=== PATIENT | female | born 1955 | race Caucasian/White ===

== ENCOUNTER → 2016-08-31 | Outpatient (CLI) | payer BC | END | disposition home or self-care (01) | LOC: GMAL 14:30 | PROVIDERS: ATTEND Family Medicine | DX: D52.9 Folate deficiency anemia, unspecified (principal); D51.3 Other dietary vitamin B12 deficiency anemia; R53.82 Chronic fatigue, unspecified; E55.9 Vitamin D deficiency, unspecified; D53.9 Nutritional anemia, unspecified ==

== ENCOUNTER → 2016-12-07 | Outpatient (CLI) | payer BC | END | disposition home or self-care (01) | LOC: LAB.O 13:31 | PROVIDERS: ATTEND Family Medicine | DX: K71.6 Toxic liver disease with hepatitis, not elsewhere classified (principal); E83.52 Hypercalcemia | CPT/HCPCS: 36415; 77063; 83970; G0202 ==

== ENCOUNTER → 2017-03-31 | Outpatient (CLI) | payer BC | END | disposition home or self-care (01) | LOC: GMAL 12:53 | PROVIDERS: ATTEND Family Medicine | DX: N30.00 Acute cystitis without hematuria (principal) ==

== ENCOUNTER → 2017-05-11 | Outpatient (CLI) | payer BC | LOC: GMAL 16:53 | PROVIDERS: ATTEND Family Medicine | DX: N30.00 Acute cystitis without hematuria (principal) ==

== ENCOUNTER 2017-09-22 15:20 | Emergency (ER) | payer BC ==
[2017-09-22] MEDS ORDERED: cefTRIAXone SODIUM 1 GM in SODIUM CHL 0.9% 50ML MIN-BAG+ 50 ML IVPB ONE (15:40)
[2017-09-22] MEDS ORDERED: KETOROLAC TROMETHAMINE INJ 30 MG/ML VIAL IV ONE (15:40)
--- NOTE | 2017-09-22 15:44 | ED.PDOC ---
History of Present Illness - General Chief Complaint: Problem Stated Complaint: L flank pain Time Seen by Provider: 09/22/17 15:40 Source: patient Exam Limitations: no limitations - History of Present Illness Initial Comments: patient comes in for suspected kidney infection. Patient states yesterday she started noticing she was having trouble urinating even if she had increased urgency. Patient states she has some dysuria but no hematuria. Today she started having severe pain in her left flank and left lower abdominal area. Patient states it feels like when she has a really bad bladder infection and the last was several months ago. She's had no fever or chills. She has had some nausea but no emesis and she's having normal bowel movements. Patient has never had kidney stones but has dealt with repetitive urinary tract infections since she was a child. Patient has a history of hypertension and cirrhosis of the liver from hepatitis C that has been cured after treatment now. Patient quit smoking in 1995 and does not drink nor does she take illicit drugs. She's had a history of a cholecystectomy, appendectomy, and hysterectomy. Timing/Duration: yesterday Quality: severe, steady, stabbing Onset Location: left flank Radiation: LLQ Activites at Onset: none Prior abdominal problems: none Improving Factors: nothing Worsening Factors: movement Associated Symptoms: nausea/vomiting, urinary frequency Allergies/Adverse Reactions: Allergies NO KNOWN ALLERGY Allergy (Verified 01/12/16 19:17) Home Medications: Ambulatory Orders Aspirin [Aspirin Adult Low Dose] 81 mg PO DAILY 01/13/16 Buspirone HCl 10 mg PO DAILY 01/13/16 Carvedilol 12.5 mg PO BID 01/13/16 Dicyclomine HCl [Bentyl] 10 mg PO TID 01/13/16 Furosemide [Lasix] 40 mg PO DAILY 01/13/16 HYDROcodone 10MG/APAP 325MG [[place] 10/325] 1 tab PO Q4HR PRN 01/13/16 Lactulose (Encephalopathy) [Lactulose] 30 ml PO BID 01/13/16 Nebivolol HCl [Bystolic] 10 mg PO DAILY 01/13/16 Ondansetron HCl [Zofran] 4 mg PO Q4HR PRN 01/13/16 Riboflavin 400 mg PO BEDTIME 01/13/16 Riboflavin 600 mg PO DAILY 01/13/16 Spironolactone 250 mg PO DAILY 01/13/16 Tolterodine Tartrate ER [Detrol LA] 4 mg PO DAILY 01/13/16 HYDROcodone/IBUPROFEN 7.5/200 [Vicoprofen] 1 - 2 ea PO Q4H PRN #30 tab 01/15/16 Promethazine HCl 12.5 mg PO Q4H #20 tab 01/15/16 Sulfa/Trimeth 800/160 (Ds) Tab [Bactrim DS] 1 tablet PO BID 10 Days #20 tab Review of Systems - Review of Systems Constitutional: Denies: chills, diaphoresis, fever EENTM: States: no symptoms reported Respiratory: States: no symptoms reported. Denies: cough, short of breath, wheezing Cardiology: States: no symptoms reported. Denies: chest pain, edema, palpitations Gastrointestinal/Abdominal: States: abdominal pain, nausea. Denies: constipation, diarrhea, vomiting Genitourinary: States: dysuria, frequency, other - hesitancy . Denies: hematuria Musculoskeletal: States: no symptoms reported Skin: States: no symptoms reported Past Medical History (General) - Patient Medical History Hx Seizures: No Hx Stroke: No Hx Asthma: No Hx of COPD: No Hx Cardiac Disorders: Yes Hx Congestive Heart Failure: No Hx Pacemaker: No Hx Hypertension: Yes - Take medication for chronic high BP Hx Diabetes: No Hx Hepatitis C: Yes - finished treatment, endstage cirrhosis declined transplant Hx MRSA: No - Vaccination History Hx Tetanus, Diphtheria Vaccination: No Hx Influenza Vaccination: No Hx Pneumococcal Vaccination: No - Social History Hx Tobacco Use: No Hx Chewing Tobacco Use: No Hx Alcohol Use: No Hx Substance Use: No Hx Substance Use Treatment: No Hx Depression: No Hx Physical Abuse: No Hx Emotional Abuse: No Hx Suspected Abuse: No - Female History Patient : No Family Medical History - Family History Father Family History: Unknown Living Status: Age at (years of age): 83 Cause of : Old age Hx Family Asthma: No Hx Family Congestive Heart Failure: No Hx Family Hypertension: Yes Hx Family Stroke: No Hx Cardiac Disease: No Hx Family Diabetes: No Hx Family Cancer: Yes - breast-mom,sister Mother Family History: Unknown Living Status: Age at (years of age): 62 Cause of : Cancer of Breast. Hx Family Asthma: No Hx Family Congestive Heart Failure: No Hx Family Hypertension: No Hx Family Stroke: No Hx Cardiac Disease: No Hx Family Diabetes: No Hx Family Cancer: Yes Physical Exam - Physical Exam General Appearance: Ill Appearing Eyes, Ears, Nose, Throat Exam: PERRL/EOMI, normal ENT inspection, TMs normal, pharynx normal Neck: non-tender, full range of motion, supple, normal inspection Cardiovascular/Respiratory: regular rate, rhythm, no M/R/G, normal peripheral pulses, no JVD, normal breath sounds, no respiratory distress, JVD Gastrointestinal/Abdominal: soft - TTP LLQ with no rebound or guarding, L CVA tenderness, no bruising no deformity Extremity: normal range of motion Neurologic: alert, oriented x 3 Progress - Progress Progress: 09/22/17 16:59 09/22/17 16:57 Abdoment/Pelvis w/o Contrast [CT] Stat Laboratory Results WBC 4.7 K/mm3 (4.8-10.8) L 09/22/17 15:50 RBC 4.20 M/mm3 (4.20-5.40) 09/22/17 15:50 Hgb 12.9 gm/dL (12.0-16.0) 09/22/17 15:50 Hct 37.7 % (36.0-47.0) 09/22/17 15:50 MCV 89.6 fl (81.0-99.0) 09/22/17 15:50 MCH 30.7 pg (27.0-31.0) 09/22/17 15:50 MCHC 34.2 g/dL (33.0-37.0) 09/22/17 15:50 RDW 13.7 % (11.5-14.5) 09/22/17 15:50 Plt Count 111 K/mm3 (130-400) L 09/22/17 15:50 MPV 7.5 fl (7.40-10.4) 09/22/17 15:50 Absolute Neuts (auto) 3.30 K/uL (1.8-6.8) 09/22/17 15:50 Absolute Lymphs (auto) 0.80 K/uL (1.0-3.4) L 09/22/17 15:50 Absolute Monos (auto) 0.40 K/uL (0.2-0.8) 09/22/17 15:50 Absolute Eos (auto) 0.10 K/uL (0.0-0.4) 09/22/17 15:50 Absolute Basos (auto) 0.00 K/uL (0.0-0.1) 09/22/17 15:50 Neutrophils % 70.6 % (42.0-78.0) 09/22/17 15:50 Lymphocytes % 18.0 % (20.0-50.0) L 09/22/17 15:50 Monocytes % 9.1 % (2.0-9.0) H 09/22/17 15:50 Eosinophils % 1.6 % (1.0-5.0) 09/22/17 15:50 Basophils % 0.7 % (0.0-2.0) 09/22/17 15:50 Sodium 135 mmol/L (135-145) 09/22/17 15:50 Potassium 4.6 mmol/L (3.6-5.0) 09/22/17 15:50 Chloride 105 mmol/L (101-111) 09/22/17 15:50 Carbon Dioxide 24 mmol/L (21-31) 09/22/17 15:50 Anion Gap 10.6 (12-18) L 09/22/17 15:50 BUN 14 mg/dL (7-18) 09/22/17 15:50 Creatinine 0.84 mg/dL (0.6-1.3) 09/22/17 15:50 BUN/Creatinine Ratio 16.7 (10-20) 09/22/17 15:50 Random Glucose 80 mg/dL (70-105) 09/22/17 15:50 Serum Osmolality 269.5 mOsm/L (275-295) L 09/22/17 15:50 Lactic Acid 0.8 mmol/L (0.5-2.2) 09/22/17 15:50 Calcium 10.2 mg/dL (8.4-10.2) 09/22/17 15:50 Total Bilirubin 1.6 mg/dL (0.2-1.0) H 09/22/17 15:50 AST 29 IU/L (10-42) 09/22/17 15:50 ALT 17 IU/L (10-60) 09/22/17 15:50 Alkaline Phosphatase 72 IU/L (42-121) 09/22/17 15:50 Serum Total Protein 6.9 gm/dL (6.4-8.2) 09/22/17 15:50 Albumin 3.7 g/dl (3.2-5.5) 09/22/17 15:50 Globulin 3.2 gm/dL (2.3-3.5) 09/22/17 15:50 Albumin/Globulin Ratio 1.2 (1.1-1.9) 09/22/17 15:50 Urine Color Yellow (Yellow) 09/22/17 16:30 Urine Appearance Clear (Clear) 09/22/17 16:30 Urine pH 6.5 (4.5-7.8) 09/22/17 16:30 Ur Specific [place] >= 1.030 (1.005-1.030) 09/22/17 16:30 Urine Protein Negative mg/dL 09/22/17 16:30 Urine Glucose (UA) Negative mg/dL (Negative) 09/22/17 16:30 Urine Ketones Negative mg/dL (NEGATIVE) 09/22/17 16:30 Urine Blood Negative (Negative) 09/22/17 16:30 Urine Nitrite Negative 09/22/17 16:30 Urine Bilirubin Negative (NEGATIVE) 09/22/17 16:30 Urine Urobilinogen 0.2 mg/dL (0.2-1.0) 09/22/17 16:30 Ur Leukocyte Esterase Negative (Negative) 09/22/17 16:30 Urine RBC 0 /hpf 09/22/17 16:30 Urine WBC 0-1 /hpf 09/22/17 16:30 Ur Epithelial Cells 0 /hpf 09/22/17 16:30 Urine Bacteria Rare 09/22/17 16:30 Patient continues to hurt on the L flank and LLQ despite Toradol and Demerol. CT of abdomen and pelvis ordered. UA and labs are normal 09/22/17 17:54 Patient Name: ELIO ANNE Gender: Female Date of : 1955 Referring Physician: THU ELLIS Organization: [facility] Accession Number: [id number] Requested Date: September 22, 2017 16:57 Report Status: Final Requested Procedure: 1 Procedure Description: Abdoment/Pelvis w/o Contrast Modality: CT Findings Reporting MD: Miguelito Sherman Fellow MD: Not available Dictation Time: Entrepreneurship Program Director: Not available Social Worker [facility] Date: EXAM DESCRIPTION: Abdoment/Pelvis w/o Contrast CLINICAL HISTORY:61 years Female, L flank pain and LLQ pain -UA Comparison: October 30, 2013 TECHNIQUE: Contiguous axial images of the abdomen and pelvis were obtained followed by reconstruction images. This exam was performed according to our departmental dose-optimization program, which includes automated exposure control, adjustment of the mA and/or kV according to patient size and/or use of iterative reconstruction technique. FINDINGS: Lung bases: Lung bases are clear. Heart: Visualized heart is within normal limits in size. Liver:Nodular contour throughout the liver consistent with cirrhosis. Heterogeneous liver appearance, Focal lesion not excluded. Gallbladder:Cholecystectomy clips in the gallbladder fossa. Spleen:Mild splenomegaly. Nonspecific calcifications throughout the spleen suggestive of prior granulomatous exposure. Pancreas: Pancreas is unremarkable. Adrenal glands:Left adrenal 1.2 cm nodule with attenuation of -15 consistent with adrenal adenoma. Kidneys/ureters:Within normal limits Bladder:Mildly thickened bladder wall. Pelvic organs: No acute abnormality Vascular structures: Diffuse atherosclerotic vascular calcifications. Peritoneum: No free fluid. Lymph nodes: No abnormal lymph nodes. Stomach/small bowel/colon: Stomach is unremarkable. Small bowel is unremarkable. Colon is unremarkable. Appendix: No evidence of appendicitis. Bones: Moderate spine degenerative changes. Soft tissues: Unremarkable. IMPRESSION: * Mildly thickened bladder wall which may be due to [facility] [employer]. [address] [place] [address], [address] [place] [address] T [phone] F [phone] [email or web address] - Report exported on Sep 22, 2017 17:53:[id number] -[id number] - Page 2 of 2 underdistention or infectious cystitis. Otherwise no acute intra-abdominal abnormality. * No bowel inflammatory changes. No evidence of obstruction. * Cirrhotic liver morphology with heterogeneous appearance. Underlying lesion not excluded these examination. Further evaluation with CT or MR liver protocol recommended. * Mild splenomegaly. * Left adrenal adenoma. Discussed with patient results. she is aware of cirrhosis and sees GI (see HPI) . Patient continues to hurt and is adamant that this is like her other UTIs. Patient has will have trial of Bactrim DS 1 po BID x 10 days and follow up with PCP on Monday. Departure - Departure Clinical Impression: Cystitis Disposition: Discharge to Home or Self Care Condition: Fair Departure Forms: ED Discharge - Pt. Copy, Patient Portal Self Enrollment Instructions: DI for Urinary Tract Infection (UTI) Diet: regular diet Activity: increase activity as tolerated Referrals: Francis Alatorre III, MD [Primary Care Provider] - 1-2 Weeks Home Medications: Ambulatory Orders Aspirin [Aspirin Adult Low Dose] 81 mg PO DAILY 01/13/16 Buspirone HCl 10 mg PO DAILY 01/13/16 Carvedilol 12.5 mg PO BID 01/13/16 Dicyclomine HCl [Bentyl] 10 mg PO TID 01/13/16 Furosemide [Lasix] 40 mg PO DAILY 01/13/16 HYDROcodone 10MG/APAP 325MG [[place] ] 1 tab PO Q4HR PRN 01/13/16 Lactulose (Encephalopathy) [Lactulose] 30 ml PO BID 01/13/16 Nebivolol HCl [Bystolic] 10 mg PO DAILY 01/13/16 Ondansetron HCl [Zofran] 4 mg PO Q4HR PRN 01/13/16 Riboflavin 400 mg PO BEDTIME 01/13/16 Riboflavin 600 mg PO DAILY 01/13/16 Spironolactone 250 mg PO DAILY 01/13/16 Tolterodine Tartrate ER [Detrol LA] 4 mg PO DAILY 01/13/16 HYDROcodone/IBUPROFEN 7.5/200 [Vicoprofen] 1 - 2 ea PO Q4H PRN #30 tab 01/15/16 Promethazine HCl 12.5 mg PO Q4H #20 tab 01/15/16 Sulfa/Trimeth 800/160 (Ds) Tab [Bactrim DS] 1 tablet PO BID 10 Days #20 tab Additional Instructions: Follow with PCP on Monday. Start Bactrim tomorrow at 1 twice a day for 10 days. Return to emergency room for increasing pain, temperature greater than or equal to 100.5, intractable nausea and vomiting.
[2017-09-22] MEDS ORDERED: cefTRIAXone SODIUM 1 GM VIAL ONE (15:50)
[2017-09-22] MEDS ORDERED: SODIUM CHL 0.9% 50ML MIN-BAG+ 50 ML IVPB ONE (15:50)
[2017-09-22] MEDS ORDERED: MEPERIDINE HCL 50 MG/ML VIAL IV ONE (16:17)
[2017-09-22] MEDS ORDERED: MEPERIDINE HCL 50 MG/ML VIAL ONE (16:18)
[2017-09-22 16:35] VITALS: TEMP 98.8
--- NOTE | 2017-09-22 17:33 | CT ---
EXAM DESCRIPTION: Abdoment/Pelvis w/o Contrast CLINICAL HISTORY:61 years Female, L flank pain and LLQ pain -UA Comparison: October 30, 2013 TECHNIQUE: Contiguous axial images of the abdomen and pelvis were obtained followed by reconstruction images. This exam was performed according to our departmental dose-optimization program, which includes automated exposure control, adjustment of the mA and/or kV according to patient size and/or use of iterative reconstruction technique. FINDINGS: Lung bases: Lung bases are clear. Heart: Visualized heart is within normal limits in size. Liver:Nodular contour throughout the liver consistent with cirrhosis. Heterogeneous liver appearance, Focal lesion not excluded. Gallbladder:Cholecystectomy clips in the gallbladder fossa. Spleen:Mild splenomegaly. Nonspecific calcifications throughout the spleen suggestive of prior granulomatous exposure. Pancreas: Pancreas is unremarkable. Adrenal glands:Left adrenal 1.2 cm nodule with attenuation of -15 consistent with adrenal adenoma. Kidneys/ureters:Within normal limits Bladder:Mildly thickened bladder wall. Pelvic organs: No acute abnormality Vascular structures: Diffuse atherosclerotic vascular calcifications. Peritoneum: No free fluid. Lymph nodes: No abnormal lymph nodes. Stomach/small bowel/colon: Stomach is unremarkable. Small bowel is unremarkable. Colon is unremarkable. Appendix: No evidence of appendicitis. Bones: Moderate spine degenerative changes. Soft tissues: Unremarkable. IMPRESSION: * Mildly thickened bladder wall which may be due to underdistention or infectious cystitis. Otherwise no acute intra-abdominal abnormality. * No bowel inflammatory changes. No evidence of obstruction. * Cirrhotic liver morphology with heterogeneous appearance. Underlying lesion not excluded these examination. Further evaluation with CT or MR liver protocol recommended. * Mild splenomegaly. * Left adrenal adenoma. Electronically signed by: Miguelito Sherman MD 09/22/2017 5:31 PM CDT
[2017-09-22 17:52] VITALS: O2SAT 99
[2017-09-22] MEDS ORDERED: MORPHINE SULFATE INJ 10 MG/ML VIAL IV ONE (17:55)
[2017-09-22 18:16] VITALS: BP 126/80
[2017-09-22] MEDS ORDERED: ACETAMINOPHEN W/COD #3 TAB (ER Disp) ONE (18:47)
[2017-09-22] MEDS ORDERED: ACETAMINOPHEN W/COD #3 TAB (ER Disp) PO ONE (18:49)
== END 2017-09-22 18:18 | disposition home or self-care (01) ==
LOC: ER 15:20
DX: N30.00 Acute cystitis without hematuria (principal); I10 Essential (primary) hypertension; B19.20 Unspecified viral hepatitis C without hepatic coma; R11.2 Nausea with vomiting, unspecified; Z98.2 Presence of cerebrospinal fluid drainage device; Z79.899 Other long term (current) drug therapy; Z87.891 Personal history of nicotine dependence
CPT/HCPCS: 36415; 74176; 80053; 81001; 83605; 85025; J0696; J1885; J2175; J2270; J7050

== ENCOUNTER → 2017-10-04 | Outpatient (CLI) | payer BC | LOC: GMAL 14:36 | PROVIDERS: ATTEND Family Medicine | DX: N30.00 Acute cystitis without hematuria (principal) ==

== ENCOUNTER 2018-03-26 19:10 | Emergency (ER) | payer SELFPAY ==
[2018-03-26] MEDS ORDERED: SODIUM CHLORIDE 0.9% 1000ML 1,000 ML IVS ONE ×2 (19:40→22:29)
[2018-03-26] MEDS ORDERED: ONDANSETRON INJ 4 MG/2 ML VIAL ONE (20:54)
[2018-03-26] MEDS ORDERED: ONDANSETRON INJ 4 MG/2 ML VIAL IV ONE (21:02)
--- NOTE | 2018-03-26 21:23 | ED.PDOC ---
History of Present Illness - General Chief Complaint: General Stated Complaint: dizziness Time Seen by Provider: 03/26/18 19:38 Source: patient Exam Limitations: no limitations - History of Present Illness Initial Comments: Patient presents with dizziness for two days. She has hepatic cirrhosis and takes a "water pill" for that. She developed dizziness and stopped taking it be cause she said she could not make it to the restroom quick enough because of the dizziness. She does not believe that she was urinating more or less than normal. No other complaints. Timing/Duration: other - two days Severity: moderate Improving Factors: nothing Worsening Factors: nothing Associated Symptoms: denies symptoms Allergies/Adverse Reactions: Allergies NO KNOWN ALLERGY Allergy (Verified 01/12/16 19:17) Home Medications: Ambulatory Orders Aspirin [Aspirin Adult Low Dose] 81 mg PO DAILY 01/13/16 Buspirone HCl 10 mg PO DAILY 01/13/16 Carvedilol 12.5 mg PO BID 01/13/16 Dicyclomine HCl [Bentyl] 10 mg PO TID 01/13/16 Furosemide [Lasix] 40 mg PO DAILY 01/13/16 HYDROcodone 10MG/APAP 325MG [[place] 10/325] 1 tab PO Q4HR PRN 01/13/16 Lactulose (Encephalopathy) [Lactulose] 30 ml PO BID 01/13/16 Nebivolol HCl [Bystolic] 10 mg PO DAILY 01/13/16 Ondansetron HCl [Zofran] 4 mg PO Q4HR PRN 01/13/16 Riboflavin 400 mg PO BEDTIME 01/13/16 Riboflavin 600 mg PO DAILY 01/13/16 Spironolactone 250 mg PO DAILY 01/13/16 Tolterodine Tartrate ER [Detrol LA] 4 mg PO DAILY 01/13/16 Review of Systems - Review of Systems Constitutional: States: no symptoms reported EENTM: States: no symptoms reported Respiratory: States: no symptoms reported Cardiology: States: no symptoms reported Gastrointestinal/Abdominal: States: no symptoms reported Genitourinary: States: no symptoms reported Musculoskeletal: States: no symptoms reported Skin: States: no symptoms reported Neurological: States: see HPI Endocrine: States: no symptoms reported Hematologic/Lymphatic: States: no symptoms reported Past Medical History (General) - Patient Medical History Hx Seizures: No Hx Stroke: No Hx Dementia: No Hx Asthma: No Hx of COPD: No Hx Cardiac Disorders: No Hx Congestive Heart Failure: No Hx Pacemaker: No Hx Hypertension: Yes Hx Thyroid Disease: No Hx Diabetes: No Hx Gastroesophageal Reflux: Yes Hx Renal Disease: No Hx Cancer: No Hx of HIV: No Hx Hepatitis C: Yes - finished treatment, endstage cirrhosis declined transplant Hx MRSA: No Surgical History: angioplasty, cholecystectomy - Vaccination History Hx Tetanus, Diphtheria Vaccination: No Hx Influenza Vaccination: No Hx Pneumococcal Vaccination: No Immunizations Up to Date: No - Social History Hx Tobacco Use: Yes - Quit 1985 Hx Chewing Tobacco Use: No Hx Alcohol Use: No Hx Substance Use: No Hx Substance Use Treatment: No Hx Depression: No Feels Threatened In Home Enviroment: No Feels Threatened In a Relationship: No Hx Physical Abuse: No Hx Emotional Abuse: No Hx Suspected Abuse: No - Female History Patient is a Female of Child Bearing Age (10 -59 yrs old): No Patient : No Family Medical History - Family History Father Family History: Unknown Living Status: Age at (years of age): 83 Cause of : Old age Hx Family Asthma: No Hx Family Congestive Heart Failure: No Hx Family Hypertension: Yes Hx Family Stroke: No Hx Cardiac Disease: No Hx Family Diabetes: No Hx Family Cancer: Yes - breast-mom,sister Mother Family History: Unknown Living Status: Age at (years of age): 62 Cause of : Cancer of Breast. Hx Family Asthma: No Hx Family Congestive Heart Failure: No Hx Family Hypertension: No Hx Family Stroke: No Hx Cardiac Disease: No Hx Family Diabetes: No Hx Family Cancer: Yes Physical Exam - Physical Exam General Appearance: Alert Eye Exam: bilateral normal Ears, Nose, Throat: hearing grossly normal, normal ENT inspection Neck: non-tender, full range of motion, supple Respiratory: lungs clear, normal breath sounds Cardiovascular/Chest: regular rate, rhythm, other - faint pulses Gastrointestinal/Abdominal: normal bowel sounds, non tender, soft Back Exam: normal inspection, no CVA tenderness Extremity: normal range of motion, non-tender, normal inspection, no pedal edema 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 This is likely a primary acute renal failure and not simple dehydration. Patient was transferred to [facility]. Laboratory Tests 03/26/18 03/26/18 03/26/18 20:12 20:12 23:19 WBC 14.7 H RBC 3.63 L Hgb 10.9 L Hct 32.6 L MCV 89.9 MCH 30.0 MCHC 33.5 RDW 14.9 H Plt Count 173 MPV 8.6 Absolute Neuts (auto) 10.50 H Absolute Lymphs (auto) 3.00 Absolute Monos (auto) 0.90 H Absolute Eos (auto) 0.00 Absolute Basos (auto) 0.20 H Neutrophils % 71.5 Lymphocytes % 20.7 Monocytes % 5.9 Eosinophils % 0.3 L Basophils % 1.6 Sodium 137 136 Potassium 4.4 3.9 Chloride 109 111 Carbon Dioxide 18 L 17 L Anion Gap 14.4 11.9 L BUN 108 H* 106 H* Creatinine 1.75 H 1.67 H BUN/Creatinine Ratio 61.7 H 63.5 H Random Glucose 100 85 Serum Osmolality Not Reportable 304.2 H Calcium 10.3 H 9.0 Total Bilirubin 1.9 H AST 38 ALT 30 Alkaline Phosphatase 56 B-Natriuretic Peptide 19.9 Serum Total Protein 7.1 Albumin 4.0 Globulin 3.1 Albumin/Globulin Ratio 1.3 Urine Color Urine Appearance Urine pH Ur Specific [place] Urine Protein Urine Glucose (UA) Urine Ketones Urine Blood Urine Nitrite Urine Bilirubin Urine Urobilinogen Ur Leukocyte Esterase Urine RBC Urine WBC Ur Epithelial Cells Urine Bacteria 03/27/18 01:50 WBC RBC Hgb Hct MCV MCH MCHC RDW Plt Count MPV Absolute Neuts (auto) Absolute Lymphs (auto) Absolute Monos (auto) Absolute Eos (auto) Absolute Basos (auto) Neutrophils % Lymphocytes % Monocytes % Eosinophils % Basophils % Sodium Potassium Chloride Carbon Dioxide Anion Gap BUN Creatinine BUN/Creatinine Ratio Random Glucose Serum Osmolality Calcium Total Bilirubin AST ALT Alkaline Phosphatase B-Natriuretic Peptide Serum Total Protein Albumin Globulin Albumin/Globulin Ratio Urine Color Yellow Urine Appearance Clear Urine pH 6.0 Ur Specific [place] 1.010 Urine Protein Negative Urine Glucose (UA) Negative Urine Ketones Negative Urine Blood Negative Urine Nitrite Negative Urine Bilirubin Negative Urine Urobilinogen 0.2 Ur Leukocyte Esterase Negative Urine RBC 0 Urine WBC 0 Ur Epithelial Cells 0 Urine Bacteria 0 Departure - Departure Clinical Impression: ARF (acute renal failure), Dizziness Disposition: Transfer to Hospital Condition: Fair Departure Forms: ED Discharge - Pt. Copy, Patient Portal Self Enrollment Diet: other - NPO except water and ice Activity: as per physical therapy Referrals: Francis Alatorre III, MD [Primary Care Provider] - 1-2 Weeks Home Medications: Ambulatory Orders Aspirin [Aspirin Adult Low Dose] 81 mg PO DAILY 01/13/16 Buspirone HCl 10 mg PO DAILY 01/13/16 Carvedilol 12.5 mg PO BID 01/13/16 Dicyclomine HCl [Bentyl] 10 mg PO TID 01/13/16 Furosemide [Lasix] 40 mg PO DAILY 01/13/16 HYDROcodone 10MG/APAP 325MG [[place] ] 1 tab PO Q4HR PRN 01/13/16 Lactulose (Encephalopathy) [Lactulose] 30 ml PO BID 01/13/16 Nebivolol HCl [Bystolic] 10 mg PO DAILY 01/13/16 Ondansetron HCl [Zofran] 4 mg PO Q4HR PRN 01/13/16 Riboflavin 400 mg PO BEDTIME 01/13/16 Riboflavin 600 mg PO DAILY 01/13/16 Spironolactone 250 mg PO DAILY 01/13/16 Tolterodine Tartrate ER [Detrol LA] 4 mg PO DAILY 01/13/16
--- NOTE | 2018-03-26 21:42 | RAD ---
EXAM DESCRIPTION: AP view of the chest CLINICAL HISTORY:62 years Female, hypotension Comparison: None FINDINGS: No focal lung consolidation. No pleural effusion. No pneumothorax. Cardiac and mediastinal silhouette is unremarkable. No acute osseous abnormality. Soft tissues are unremarkable. IMPRESSION: No acute findings. No focal lung consolidation. Electronically signed by: Nam Epps DO 03/26/2018 9:41 PM ADMINISTRATIVE JUDGE
[2018-03-27] MEDS ORDERED: ONDANSETRON INJ 4 MG/2 ML VIAL IV ONE ×2 (00:08→07:39)
[2018-03-27] MEDS ORDERED: SODIUM CHLORIDE 0.9% 1000ML 1,000 ML IVS ONE (00:10)
[2018-03-27] MEDS ORDERED: SODIUM CHLORIDE 0.9% 1000ML 1,000 ML IVS PRN (03:38)
[2018-03-27 07:56] VITALS: O2SAT 98
[2018-03-27 08:28] VITALS: BP 102/55; TEMP 97.4
== END 2018-03-27 08:28 | disposition short-term general hospital (02) ==
LOC: ER 19:10
DX: N17.9 Acute kidney failure, unspecified (principal); R42 Dizziness and giddiness; K74.60 Unspecified cirrhosis of liver; I10 Essential (primary) hypertension; K21.9 Gastro-esophageal reflux disease without esophagitis; Z87.891 Personal history of nicotine dependence; Z86.19 Personal history of other infectious and parasitic diseases; Z79.899 Other long term (current) drug therapy; Z79.82 Long term (current) use of aspirin
CPT/HCPCS: 71045; 80048; 80053; 81001; 83880; 85025; J2405; J7030

== ENCOUNTER 2018-09-27 18:58 | Emergency (ER) | payer SELFPAY ==
--- NOTE | 2018-09-27 19:40 | ED.PDOC ---
History of Present Illness - General Chief Complaint: Lower Extremity Injury Stated Complaint: L hip discomfort after a fall Time Seen by Provider: 09/27/18 19:38 Source: patient Exam Limitations: no limitations - History of Present Illness Initial Comments: Lakhwinder Slater 62 y/o female stated that she fell on her left side after tripping on a rug at home then with pain on left hip after wards.Called up EMS since unable to get up.Denies neck pains,headache ,dizziness,or LOC. Occurred: just prior to arrival Pain - Lower Extremity: severe: Left Thigh/Hip Method of Injury: fell Improving Factors: rest Worsening Factors: movement Associated Symptoms: pain Allergies/Adverse Reactions: Allergies NO KNOWN ALLERGY Allergy (Verified 01/12/16 19:17) Home Medications: Ambulatory Orders Carvedilol 6.25 mg PO BID 01/13/16 Furosemide [Lasix] 40 mg PO DAILY 01/13/16 Spironolactone 250 mg PO DAILY 01/13/16 Citalopram Hydrobromide [Citalopram] 40 mg PO DAILY 03/27/18 Lisinopril 10 mg PO BID 03/27/18 Oxycodone W/ Acetaminophen [Oxycodone/Acetaminophen] 1 tab PO TID 03/27/18 Review of Systems - Review of Systems Musculoskeletal: States: joint pain - left hip Past Medical History (General) - Patient Medical History Hx Seizures: No Hx Stroke: No Hx Dementia: No Hx Asthma: No Hx of COPD: No Hx Cardiac Disorders: No Hx Congestive Heart Failure: No Hx Pacemaker: No Hx Hypertension: Yes Hx Thyroid Disease: No Hx Diabetes: No Hx Gastroesophageal Reflux: Yes Hx Renal Disease: No Hx Cancer: No Hx of HIV: No Hx Hepatitis C: Yes - finished treatment, endstage cirrhosis declined transplant Hx MRSA: No Surgical History: cholecystectomy, other - angioplasty - Vaccination History Hx Tetanus, Diphtheria Vaccination: No Hx Influenza Vaccination: No Hx Pneumococcal Vaccination: No - Social History Hx Tobacco Use: Yes - Quit 1985 Hx Chewing Tobacco Use: No Hx Alcohol Use: No Hx Substance Use: No Hx Substance Use Treatment: No Hx Depression: No Hx Physical Abuse: No Hx Emotional Abuse: No Hx Suspected Abuse: No - Female History Patient : No Family Medical History - Family History Father Family History: Unknown Living Status: Age at (years of age): 83 Cause of : Old age Hx Family Asthma: No Hx Family Congestive Heart Failure: No Hx Family Hypertension: Yes Hx Family Stroke: No Hx Cardiac Disease: No Hx Family Diabetes: No Hx Family Cancer: Yes - breast-mom,sister Mother Family History: Unknown Living Status: Age at (years of age): 62 Cause of : Cancer of Breast. Hx Family Asthma: No Hx Family Congestive Heart Failure: No Hx Family Hypertension: No Hx Family Stroke: No Hx Cardiac Disease: No Hx Family Diabetes: No Hx Family Cancer: Yes Physical Exam - Physical Exam General Appearance: Alert, Comfortable, No apparent distress Eyes, Ears, Nose, Throat: normal ENT inspection Neck: non-tender, full range of motion, supple, normal inspection Cardiovascular/Respiratory: regular rate, rhythm, no M/R/G, normal peripheral pulses, normal breath sounds Gastrointestinal/Abdominal: non-tender Back: normal inspection, no CVA tenderness, no vertebral tenderness Thigh/Hip: bone tenderness - left hip, pain - movement Leg: normal inspection, non-tender, no evidence of injury, normal ROM Knee: normal inspection, non-tender, no evidence of injury Ankle: non-tender, no evidence of injury, normal ROM Foot: normal inspection, non-tender, normal ROM Progress - Progress Progress: 09/27/18 20:29 Vital Signs - 8 hr 09/27/18 09/27/18 18:58 20:00 Temperature 98.5 F 98.7 F Pulse Rate [ 70 64 Left Radial] Respiratory 20 18 Rate Blood Pressure 191/109 183/96 [Left Arm] O2 Sat by Pulse 99 96 Oximetry 09/27/18 20:32 Discuss result of hip x ray with patient and need to be transferred to [facility] since OR closed till Monday-explained to patient - EKG/XRAY/CT XRAY: hip - left femoral neck fracture Departure - Departure Clinical Impression: Fracture due to fall Fracture of base of femoral neck Qualifiers: Encounter type: initial encounter Fracture type: closed Fracture alignment: displaced Laterality: left Qualified Code(s): S72.042A - Displaced fracture of base of neck of left femur, initial encounter for closed fracture Time of Disposition: 20:33 Disposition: Transfer to Hospital Condition: Fair Departure Forms: Patient Portal Self Enrollment Referrals: Francis Alatorre III, MD [Primary Care Provider] - 1-2 Weeks Home Medications: Ambulatory Orders Carvedilol 6.25 mg PO BID 01/13/16 Furosemide [Lasix] 40 mg PO DAILY 01/13/16 Spironolactone 250 mg PO DAILY 01/13/16 Citalopram Hydrobromide [Citalopram] 40 mg PO DAILY 03/27/18 Lisinopril 10 mg PO BID 03/27/18 Oxycodone W/ Acetaminophen [Oxycodone/Acetaminophen] 1 tab PO TID 03/27/18 Transfer to Outside Facility - Transfer Information Accepting Provider:: Dr. Abbi Serna Accepting Facility: [facility] till 01 October 2018
[2018-09-27] MEDS ORDERED: HYDROmorphone HCL INJ 2 MG/ML VIAL IV ONE ×2 (20:11→21:12)
--- NOTE | 2018-09-27 20:15 | RAD ---
EXAM DESCRIPTION: Hip,Left 2 Views CLINICAL HISTORY: 62 years Female fall with left hip pain COMPARISON: None TECHNIQUE: Two images of the left hip were obtained. FINDINGS: Fracture left femoral neck. Superior displacement trochanteric fracture fragment. Satisfactory articulation left femoral head with acetabular region. Joint space narrowing noted. Normal bony mineralization. No erosive or lytic lesions. IMPRESSION: Fracture left femoral neck. Superimposed degenerative changes. Electronically signed by: Elvira Sorto MD 09/27/2018 8:13 PM CDT
--- NOTE | 2018-09-27 20:16 | RAD ---
EXAM DESCRIPTION: Pelvis CLINICAL HISTORY: 62 years Female fall with left hip pain COMPARISON: Images of the left hip performed on the same day. TECHNIQUE: AP view of the pelvis was obtained. FINDINGS: Fracture left femoral neck. Superior displacement trochanteric fracture fragment. No additional fracture seen. Moderate bony demineralization. Marked degenerative change lower lumbar spine. IMPRESSION: Fracture left femoral neck. Superior displacement trochanteric fracture fragment. No additional fracture seen. Marked degenerative change lower lumbar spine. Electronically signed by: Elvira Sorto MD 09/27/2018 8:14 PM CDT
[2018-09-27 20:44] VITALS: TEMP 97.5; O2SAT 98
[2018-09-27] MEDS ORDERED: ONDANSETRON INJ 4 MG/2 ML VIAL IV ONE (21:13)
[2018-09-27 21:16] VITALS: BP 189/105
== END 2018-09-27 21:25 | disposition short-term general hospital (02) ==
LOC: ER 18:58
DX: S72.042A Displaced fracture of base of neck of left femur, initial encounter for closed fracture (principal); I10 Essential (primary) hypertension; K21.9 Gastro-esophageal reflux disease without esophagitis; Z86.19 Personal history of other infectious and parasitic diseases; K74.60 Unspecified cirrhosis of liver; Z87.891 Personal history of nicotine dependence; Z79.899 Other long term (current) drug therapy; W01.0XXA Fall on same level from slipping, tripping and stumbling without subsequent striking against object, initial encounter; Y92.009 Unspecified place in unspecified non-institutional (private) residence as the place of occurrence of the external cause
CPT/HCPCS: 72170; 73502; J1170; J2405

== ENCOUNTER 2018-10-24 14:39 | Emergency (ER) | payer SELFPAY ==
[2018-10-24] MEDS ORDERED: SODIUM CHLORIDE 0.9% 1000ML 1,000 ML IVS ONE (14:49)
[2018-10-24] MEDS ORDERED: PROCHLORPERAZINE INJ 10 MG/2 ML VIAL IV ONE (14:49)
[2018-10-24] MEDS ORDERED: MORPHINE SULFATE INJ 10 MG/ML VIAL IV ONE (14:49)
--- NOTE | 2018-10-24 14:49 | ED.PDOC ---
History of Present Illness - General Chief Complaint: Abdominal Pain Stated Complaint: abdominal pain Time Seen by Provider: 10/24/18 14:48 Information Source: patient Exam Limitations: no limitations - History of Present Illness Initial Comments: Lakhwinder Slater 62 y/o female came to ER with sudden onset of intermittent non radiating sharp right sided abdominal pain about 2 hours ago.[place] nauseated stated ate light meals today.Denie dysuria,hematuria,hematemesis,diarrhea.Had recent left hip surgery in [facility]. Abdominal Pain Onset Location: RLQ Pain Radiation: no radiation Quality: intermittent, sharpness Timing/Duration: 1-3 hours Improving Factors: nothing Worsening Factors: nothing Associated Symptoms: other - see hpi Review of Systems - Review of Systems Gastrointestinal/Abdominal: States: see HPI, abdominal pain All other Systems: Reviewed and Negative, No Change from Baseline Past Medical History (General) - Patient Medical History Hx Seizures: No Hx Stroke: No Hx Dementia: No Hx Asthma: No Hx of COPD: No Hx Cardiac Disorders: No Hx Congestive Heart Failure: No Hx Pacemaker: No Hx Hypertension: Yes Hx Thyroid Disease: No Hx Diabetes: No Hx Gastroesophageal Reflux: Yes - history of variceal bleeding Hx Renal Disease: No Hx Cancer: No Hx of HIV: No Hx Hepatitis C: Yes - finished treatment, endstage cirrhosis declined transplant Hx MRSA: No Surgical History: appendectomy, cholecystectomy, other - hip - Vaccination History Hx Tetanus, Diphtheria Vaccination: No Hx Influenza Vaccination: No Hx Pneumococcal Vaccination: No - Social History Hx Tobacco Use: Yes - Quit 1985 Hx Chewing Tobacco Use: No Hx Alcohol Use: No Hx Substance Use: No Hx Substance Use Treatment: No Hx Depression: No Hx Physical Abuse: No Hx Emotional Abuse: No Hx Suspected Abuse: No - Female History Patient : No Family Medical History - Family History Father Family History: Unknown Living Status: Age at (years of age): 83 Cause of : Old age Hx Family Asthma: No Hx Family Congestive Heart Failure: No Hx Family Hypertension: Yes Hx Family Stroke: No Hx Cardiac Disease: No Hx Family Diabetes: No Hx Family Cancer: Yes - breast-mom,sister Mother Family History: Unknown Living Status: Age at (years of age): 62 Cause of : Cancer of Breast. Hx Family Asthma: No Hx Family Congestive Heart Failure: No Hx Family Hypertension: No Hx Family Stroke: No Hx Cardiac Disease: No Hx Family Diabetes: No Hx Family Cancer: Yes Physical Exam - Physical Exam General Appearance: Alert, Comfortable, No apparent distress Eyes, Ears, Nose, Throat Exam: PERRL/EOMI, normal ENT inspection Neck: normal inspection Respiratory: lungs clear, normal breath sounds Cardiovascular/Chest: normal peripheral pulses, regular rate, rhythm, no murmur Peripheral Pulses: No deficit Gastrointestinal/Abdominal: soft, no organomegaly, no pulsatile mass, tenderness - right side abdomen Back Exam: no CVA tenderness, no vertebral tenderness Extremity: no pedal edema, no calf tenderness Neurologic: alert, oriented x 3 Progress - Progress Progress: 10/24/18 18:10 Vital Signs - 8 hr 10/24/18 10/24/18 10/24/18 14:40 15:39 16:39 Temperature 97.7 F Pulse Rate [L 61 58 L 58 L finger] Respiratory 18 18 18 Rate Blood Pressure 173/123 169/105 157/89 [R brachial] O2 Sat by Pulse 99 99 98 Oximetry 10/24/18 17:39 Temperature Pulse Rate [L 57 L finger] Respiratory 18 Rate Blood Pressure 161/86 [R brachial] O2 Sat by Pulse 99 Oximetry - Results/Orders Results/Orders: 10/24/18 14:49 IV Care:Saline Lock per Protoc QSHIFT Laboratory Results - last 24 hr 10/24/18 10/24/18 10/24/18 15:30 15:30 16:45 WBC 6.2 RBC 4.73 Hgb 12.3 Hct 37.6 MCV 79.4 L MCH 26.0 L MCHC 32.8 L RDW 23.6 H Plt Count 146 MPV 7.6 Absolute Neuts (auto) 4.70 Absolute Lymphs (auto) 1.00 Absolute Monos (auto) 0.40 Absolute Eos (auto) 0.10 Absolute Basos (auto) 0.10 Neutrophils % 75.4 Lymphocytes % 15.9 L Monocytes % 6.4 Eosinophils % 1.1 Basophils % 1.2 Normal RBC Morphology Plts lorraine adequate PT 10.6 INR 1.06 PTT (SP) 21.6 L Sodium 139 Potassium 3.8 Chloride 107 Carbon Dioxide 21 Anion Gap 14.8 BUN 20 H Creatinine 0.86 BUN/Creatinine Ratio 23.3 H Random Glucose 111 H Serum Osmolality 280.8 Calcium 9.4 Magnesium 1.9 Total Bilirubin 1.2 H Direct Bilirubin 0.2 Indirect Bilirubin 1.0 H AST 26 ALT 17 Alkaline Phosphatase 93 Creatine Kinase 39 CK-MB (CK-2) 1.4 CK-MB (CK-2) % Not Reportable Troponin I < 0.02 Serum Total Protein 7.1 Albumin 3.9 Lipase 41 Urine Color Yellow Urine Appearance Clear Urine pH 7.5 Ur Specific [place] 1.020 Urine Protein Negative Urine Glucose (UA) Negative Urine Ketones Negative Urine Blood Negative Urine Nitrite Negative Urine Bilirubin Negative Urine Urobilinogen 0.2 Ur Leukocyte Esterase Trace H Urine RBC 0 Urine WBC 5-10 H Ur Epithelial Cells 1-3 Amorphous Sediment Trace Urine Bacteria Rare - EKG/XRAY/CT CT Interpretation Call Back: Yes - abd/p-liver cirrhosis Departure - Departure Clinical Impression: Abdominal pain Qualifiers: Abdominal location: right lower quadrant Qualified Code(s): R10.31 - Right lower quadrant pain Liver cirrhosis Qualifiers: Hepatic cirrhosis type: unspecified hepatic cirrhosis Ascites presence: without ascites Qualified Code(s): K74.60 - Unspecified cirrhosis of liver Urinary tract infection Qualifiers: Urinary tract infection type: site unspecified Hematuria presence: without hematuria Qualified Code(s): N39.0 - Urinary tract infection, site not specified Time of Disposition: 18:14 Disposition: Discharge to Home or Self Care Condition: Fair Departure Forms: ED Discharge - Pt. Copy, Patient Portal Self Enrollment Instructions: DI for Abdominal Pain-Adult, Cirrhosis (DC) Diet: other - AVOID GREASY/SPICY FOODS Referrals: Francis Alatorre III, MD [Primary Care Provider] - 1-2 Weeks Prescriptions: Promethazine W/Codeine Syr [Phenergan With Codeine Syrup] 10 ml PO TID PRN #120 ml PRN Reason: Pain Sulfa/Trimeth 800/160 (Ds) Tab [Bactrim DS] 1 tablet PO BID 7 Days #14 tab Home Medications: Ambulatory Orders Carvedilol 6.25 mg PO BID 01/13/16 Furosemide [Lasix] 40 mg PO DAILY 01/13/16 Spironolactone 250 mg PO DAILY 01/13/16 Citalopram Hydrobromide [Citalopram] 40 mg PO DAILY 03/27/18 Lisinopril 10 mg PO BID 03/27/18 Oxycodone W/ Acetaminophen [Oxycodone/Acetaminophen] 1 tab PO TID 03/27/18 Promethazine W/Codeine Syr [Phenergan With Codeine Syrup] 10 ml PO TID PRN #120 ml 10/24/18 Sulfa/Trimeth 800/160 (Ds) Tab [Bactrim DS] 1 tablet PO BID 7 Days #14 tab 10/24/18 Additional Instructions: Follow up with primary Md and GI specialist call for appointment JOSHUA;Return to Emergency room as needed
--- NOTE | 2018-10-24 17:16 | CT ---
EXAM DESCRIPTION: Abdoment/Pelvis w/o Contrast CLINICAL HISTORY: 62 years Female pain COMPARISON: CT scan of the abdomen and pelvis dated September 22, 2017. TECHNIQUE: Images were obtained in axial, sagittal, and coronal planes. No intravenous contrast was administered. This exam was performed according to our departmental dose-optimization program which includes use of Automated Exposure Control, adjustment of the mA and/or kV according to patient size and/or use of iterative reconstruction technique. FINDINGS: Enlarged left lobe of liver with markedly nodular hepatic contour consistent with cirrhotic change. Prior cholecystectomy. Spleen is enlarged measuring 15 cm in longitudinal dimension. Calcified granuloma involving the spleen. Unremarkable pancreas and right adrenal gland. 2 cm low-attenuation lesion left adrenal gland likely adenoma. Suspected varices splenic region. No obstructing renal calcifications bilaterally. No hydronephrosis bilaterally. Mild bladder wall thickening. Calcification abdominal aorta with no dilatation seen. No adenopathy or abnormal fluid collections noted. Appendix not well identified however no secondary signs for appendicitis. No bowel obstruction, perforation, or inflammation. Radiopaque focus within stomach likely ingested medication. Small periumbilical hernia which contains only mesenteric fat. Chronic changes lower lungs bilaterally. Small hiatal hernia. No acute osseous abnormality. Left total hip prosthesis. Intervertebral disc space narrowing L2-3 level. IMPRESSION: Enlarged left lobe of liver with findings consistent with marked cirrhotic change. Splenomegaly. Possible cystitis. Left adrenal adenoma unchanged. Electronically signed by: Elvira Sorto MD 10/24/2018 5:15 PM CDT
[2018-10-24 18:39] VITALS: BP 141/76; TEMP 96.7; O2SAT 96
== END 2018-10-24 18:39 | disposition home or self-care (01) ==
LOC: ER 14:39
DX: K74.60 Unspecified cirrhosis of liver (principal); N39.0 Urinary tract infection, site not specified; R10.31 Right lower quadrant pain; I10 Essential (primary) hypertension; K21.9 Gastro-esophageal reflux disease without esophagitis; Z86.19 Personal history of other infectious and parasitic diseases; Z87.891 Personal history of nicotine dependence
CPT/HCPCS: 36415; 74176; 80048; 80076; 81001; 82550; 82553; 83690; 84484; 85025; 85610; 85730; J0780; J2270; J7030

== ENCOUNTER → 2018-10-29 | Outpatient (CLI) | payer MEDICARE | LOC: GMAL 17:52 | PROVIDERS: ATTEND Family Medicine | DX: D50.8 Other iron deficiency anemias (principal) ==

== ENCOUNTER 2018-11-05 18:37 | Emergency (ER) | payer MEDICARE ==
--- NOTE | 2018-11-05 19:21 | ED.PDOC ---
History of Present Illness - General Chief Complaint: Problem Stated Complaint: Right flank pain Time Seen by Provider: 11/05/18 19:16 Source: patient Exam Limitations: no limitations - History of Present Illness Initial Comments: Lakhwinder Slater 62 y/o female came to ER with on and off burning/sharp right flank pain for the last 12 days and was seen here 12 days ago for severe abdominal pain was given pain medications and oral antibiotics stated got better but yesterday starting to hurt again on same area advised by her MD to come here.Had 2 Ct abd/pelvis scan no acute abnormalities noted except for liver cirrhosis and thickened urinary bladder wall Timing/Duration: yesterday Quality: moderate, burning, sharpness Onset Location: right flank, other - RUQ Radiation: right flank Activites at Onset: none Prior abdominal problems: similar symptoms Sexual intercourse history: not active Improving Factors: nothing Worsening Factors: nothing Associated Symptoms: other - see hpi Allergies/Adverse Reactions: Allergies NO KNOWN ALLERGY Allergy (Verified 10/24/18 15:30) Home Medications: Ambulatory Orders Carvedilol 6.25 mg PO BID 01/13/16 Furosemide [Lasix] 40 mg PO DAILY 01/13/16 Spironolactone 250 mg PO DAILY 01/13/16 Citalopram Hydrobromide [Citalopram] 40 mg PO DAILY 03/27/18 Lisinopril 10 mg PO BID 03/27/18 Oxycodone W/ Acetaminophen [Oxycodone/Acetaminophen] 1 tab PO TID 03/27/18 Promethazine W/Codeine Syr [Phenergan With Codeine Syrup] 10 ml PO TID PRN #120 ml 10/24/18 Sulfa/Trimeth 800/160 (Ds) Tab [Bactrim DS] 1 tablet PO BID 7 Days #14 tab 10/24/18 Acetaminophen W/ Codeine [Tylenol w/Codeine 300-30 mg] 1 tab PO TID PRN #20 tab 11/05/18 Review of Systems - Review of Systems Gastrointestinal/Abdominal: States: see HPI, abdominal pain, other - right flank and ruq pain All other Systems: Reviewed and Negative, No Change from Baseline Past Medical History (General) - Patient Medical History Hx Seizures: No Hx Stroke: No Hx Dementia: No Hx Asthma: No Hx of COPD: No Hx Cardiac Disorders: No Hx Congestive Heart Failure: No Hx Pacemaker: No Hx Hypertension: Yes Hx Thyroid Disease: No Hx Diabetes: No Hx Gastroesophageal Reflux: Yes - history of variceal bleeding Hx Renal Disease: No Hx Cancer: No Hx of HIV: No Hx Hepatitis C: Yes - finished treatment, endstage cirrhosis declined transplant Hx MRSA: No Surgical History: cholecystectomy, other - hip surgery - Vaccination History Hx Tetanus, Diphtheria Vaccination: No Hx Influenza Vaccination: No Hx Pneumococcal Vaccination: No - Social History Hx Tobacco Use: Yes - Quit 1985 Hx Chewing Tobacco Use: No Hx Alcohol Use: No Hx Substance Use: No Hx Substance Use Treatment: No Hx Depression: No Hx Physical Abuse: No Hx Emotional Abuse: No Hx Suspected Abuse: No - Activities of Daily Living Grooming Ability: Independent Eating (Feeding) Ability: Independent Toileting Ability: Independent - Female History Patient : No Family Medical History - Family History Father Family History: Unknown Living Status: Age at (years of age): 83 Cause of : Old age Hx Family Asthma: No Hx Family Congestive Heart Failure: No Hx Family Hypertension: Yes Hx Family Stroke: No Hx Cardiac Disease: No Hx Family Diabetes: No Hx Family Cancer: Yes - breast-mom,sister Mother Family History: Unknown Living Status: Age at (years of age): 62 Cause of : Cancer of Breast. Hx Family Asthma: No Hx Family Congestive Heart Failure: No Hx Family Hypertension: No Hx Family Stroke: No Hx Cardiac Disease: No Hx Family Diabetes: No Hx Family Cancer: Yes Physical Exam - Physical Exam General Appearance: Alert, Comfortable, No apparent distress Eyes, Ears, Nose, Throat Exam: normal ENT inspection Neck: full range of motion, normal inspection Cardiovascular/Respiratory: regular rate, rhythm, normal peripheral pulses, normal breath sounds Gastrointestinal/Abdominal: soft, no organomegaly, tenderness - RUQ no peritoneal signs Back Exam: no vertebral tenderness, CVA tenderness (R) Neurologic: normal mood/affect, oriented x 3 Skin Exam: normal color, warm/dry Progress - Progress Progress: 11/05/18 22:13 Vital Signs - 8 hr 11/05/18 11/05/18 11/05/18 19:16 20:03 20:05 Temperature 99.0 F Pulse Rate [ 65 62 60 Right Finger] Respiratory 18 18 18 Rate Blood Pressure 152/87 109/71 [Left Arm] O2 Sat by Pulse 98 94 L Oximetry 11/05/18 11/05/18 21:17 22:06 Temperature Pulse Rate [ 56 L 53 L Right Finger] Respiratory 18 18 Rate Blood Pressure 98/58 126/73 [Left Arm] O2 Sat by Pulse 96 97 Oximetry - Results/Orders Results/Orders: 11/05/18 19:22 IV Care:Saline Lock per Protoc QSHIFT 11/05/18 21:23 EKG Assessment ONCE 11/05/18 21:30 EKG STAT Laboratory Results - last 24 hr 11/05/18 11/05/18 11/05/18 19:35 19:35 19:45 WBC 5.2 RBC 4.81 Hgb 13.0 Hct 39.2 MCV 81.5 MCH 27.1 MCHC 33.3 RDW 22.3 H Plt Count 155 MPV 7.2 L Absolute Neuts (auto) 3.30 Absolute Lymphs (auto) 1.30 Absolute Monos (auto) 0.50 Absolute Eos (auto) 0.10 Absolute Basos (auto) 0.00 Neutrophils % 62.5 Lymphocytes % 25.5 Monocytes % 9.8 H Eosinophils % 1.5 Basophils % 0.7 Normal RBC Morphology Stain quality accept PT 9.8 INR 0.98 PTT (SP) 23.0 Sodium 136 Potassium 4.1 Chloride 105 Carbon Dioxide 20 L Anion Gap 15.1 BUN 20 H Creatinine 0.89 BUN/Creatinine Ratio 22.5 H Random Glucose 112 H Serum Osmolality 275.3 Calcium 10.0 Magnesium 2.1 Total Bilirubin 1.6 H Direct Bilirubin 0.2 Indirect Bilirubin 1.4 H AST 38 ALT 31 Alkaline Phosphatase 107 Creatine Kinase 43 CK-MB (CK-2) 1.0 CK-MB (CK-2) % Not Reportable Troponin I < 0.02 Serum Total Protein 7.6 Albumin 4.2 Urine Color Urine Appearance Urine pH Ur Specific [place] Urine Protein Urine Glucose (UA) Urine Ketones Urine Blood Urine Nitrite Urine Bilirubin Urine Urobilinogen Ur Leukocyte Esterase Urine RBC Urine WBC Ur Epithelial Cells Urine Bacteria Urine Mucus Urine Opiates Screen Negative Urine Barbiturates Negative Ur Phencyclidine Scrn Negative U Amphetamin/Meth Scrn Negative U Benzodiazepines Scrn Negative U Cocaine Metab Screen Negative U Cannabinoids Screen Negative 11/05/18 19:58 WBC RBC Hgb Hct MCV MCH MCHC RDW Plt Count MPV Absolute Neuts (auto) Absolute Lymphs (auto) Absolute Monos (auto) Absolute Eos (auto) Absolute Basos (auto) Neutrophils % Lymphocytes % Monocytes % Eosinophils % Basophils % Normal RBC Morphology PT INR PTT (SP) Sodium Potassium Chloride Carbon Dioxide Anion Gap BUN Creatinine BUN/Creatinine Ratio Random Glucose Serum Osmolality Calcium Magnesium Total Bilirubin Direct Bilirubin Indirect Bilirubin AST ALT Alkaline Phosphatase Creatine Kinase CK-MB (CK-2) CK-MB (CK-2) % Troponin I Serum Total Protein Albumin Urine Color Yellow Urine Appearance Clear Urine pH 6.5 Ur Specific [place] 1.020 Urine Protein Negative Urine Glucose (UA) Negative Urine Ketones Negative Urine Blood Negative Urine Nitrite Negative Urine Bilirubin Negative Urine Urobilinogen 0.2 Ur Leukocyte Esterase Negative Urine RBC 0 Urine WBC 0-1 Ur Epithelial Cells 1-3 Urine Bacteria 2+ H Urine Mucus Trace Urine Opiates Screen Urine Barbiturates Ur Phencyclidine Scrn U Amphetamin/Meth Scrn U Benzodiazepines Scrn U Cocaine Metab Screen U Cannabinoids Screen discuss all test results with patient - EKG/XRAY/CT EKG: [place], Sinus, no ST T wave changes Comments: HR-54 CT Ordered: No Departure - Departure Clinical Impression: Bladder wall thickening, Flank pain, Chronic liver disease and cirrhosis, Sinus bradycardia by electrocardiogram, History of esophageal varices Low blood pressure Qualifiers: Hypotension type: other hypotension type Qualified Code(s): I95.89 - Other hypotension Time of Disposition: 22:15 Disposition: Discharge to Home or Self Care Condition: Fair Departure Forms: ED Discharge - Pt. Copy, Patient Portal Self Enrollment Referrals: Francis Alatorre III, MD [Primary Care Provider] - 1-2 Weeks Prescriptions: Acetaminophen W/ Codeine [Tylenol w/Codeine 300-30 mg] 1 tab PO TID PRN #20 tab PRN Reason: Pain Home Medications: Ambulatory Orders Carvedilol 6.25 mg PO BID 01/13/16 Furosemide [Lasix] 40 mg PO DAILY 01/13/16 Spironolactone 250 mg PO DAILY 01/13/16 Citalopram Hydrobromide [Citalopram] 40 mg PO DAILY 03/27/18 Lisinopril 10 mg PO BID 03/27/18 Oxycodone W/ Acetaminophen [Oxycodone/Acetaminophen] 1 tab PO TID 03/27/18 Promethazine W/Codeine Syr [Phenergan With Codeine Syrup] 10 ml PO TID PRN #120 ml 07/31/19 Sulfa/Trimeth 800/160 (Ds) Tab [Bactrim DS] 1 tablet PO BID 7 Days #14 tab 10/24/18 Acetaminophen W/ Codeine [Tylenol w/Codeine 300-30 mg] 1 tab PO TID PRN #20 tab 11/05/18 Additional Instructions: Need to reduce dose of the following home medications- Carvedilol 6.25 mg to 3.125 mg am and pm or take 1/2 tablet BID;Spirinolactone-25 mg take 1/2 half tablet daily;Need to follow up with primary Md for Urologist referral for bladder wall thickening and GI specialist for follow up of liver cirrhosis;Return to Emergency Room as needed;continue with all home medications
[2018-11-05] MEDS ORDERED: PROCHLORPERAZINE INJ 10 MG/2 ML VIAL IV ONE (19:22)
[2018-11-05] MEDS ORDERED: HYDROmorphone HCL INJ 2 MG/ML VIAL IV ONE ×2 (19:22→21:19)
[2018-11-05] MEDS ORDERED: SODIUM CHLORIDE 0.9% 500ML 500 ML IVS ONE ×2 (19:42→21:23)
[2018-11-05] MEDS ORDERED: LORazepam 0.5 MG TAB PO ONE (21:19)
[2018-11-05] MEDS ORDERED: LACTATED RINGERS 1,000 ML IVS PRN (21:24)
--- NOTE | 2018-11-05 21:33 | RAD ---
EXAM: Thoracic Spine,AP Lateral CLINICAL INDICATION: 62-year-old female with pain. TECHNIQUE: Three views of the thoracic spine were obtained in AP, lateral, and swimmer's view projection. COMPARISON: None. FINDINGS: The cervical thoracic junction is not visualized secondary to overlapping structures and patient rotation. Alignment of the thoracic spine is within normal limits. There is no subluxation or fracture deformity. Morphology of the vertebral bodies and intervertebral disc spaces is within normal limits. The remainder of the visualized bones are within normal limits. Slight convex levocurvature of the upper spine versus patient positioning. Cholecystectomy clips. Atherosclerotic calcification of the tortuous resting aorta. IMPRESSION: No acute radiographic abnormality. If the patient's symptoms persist, follow-up evaluation with MRI may be considered. Electronically signed by: Kirsten Garcia MD 11/05/2018 9:31 PM CDT
[2018-11-05] MEDS ORDERED: HYDROCOD/APAP 10/325 (ER DISP) # 3 tablets PO ONE (22:23)
[2018-11-05 22:41] VITALS: BP 107/69; TEMP 98.2; O2SAT 99
== END 2018-11-05 22:41 | disposition home or self-care (01) ==
LOC: ER 18:37
DX: R10.9 Unspecified abdominal pain (principal); N32.9 Bladder disorder, unspecified; K74.60 Unspecified cirrhosis of liver; R00.1 Bradycardia, unspecified; I95.89 Other hypotension; I10 Essential (primary) hypertension; Z87.19 Personal history of other diseases of the digestive system; Z87.891 Personal history of nicotine dependence; Z86.19 Personal history of other infectious and parasitic diseases; Z90.49 Acquired absence of other specified parts of digestive tract; Z79.899 Other long term (current) drug therapy
CPT/HCPCS: 36415; 72070; 80048; 80076; 80307; 81001; 82550; 82553; 84484; 85025; 85610; 85730; J0780; J1170; J7040

== ENCOUNTER → 2018-11-08 | Outpatient (CLI) | payer MEDICARE ==
--- NOTE | 2018-11-08 15:42 | CT ---
PROVIDED CLINICAL HISTORY/REASON FOR EXAM: Unspecified abdominal pain STUDY TYPE/TECHNIQUE: CT ABDOMEN PELVIS WITHOUT IV CONTRAST This exam was performed according to our departmental dose-optimization program, which includes automated exposure control, adjustment of the mA and/or kV according to patient size and/or use of iterative reconstruction technique. COMPARISON: October 24, 2018 FINDINGS: Visualized lung bases are grossly unremarkable. Cirrhotic liver morphology. Evaluation limited by lack of intravenous contrast. Cholecystectomy. The spleen measures 14.5 cm. Large splenic varices. The pancreas is unremarkable. Bilateral adrenal adenomas. Normal renal contours. No hydronephrosis. No urolithiasis. The bladder is decompressed. Scattered colonic diverticula without focal inflammatory change. No evidence of bowel obstruction. No findings to suggest appendicitis. No adenopathy. No focal fluid collection. No free air. Normal caliber abdominal aorta. Left hip prosthesis. No acute or suspicious osseous abnormality. Scattered degenerative changes present. IMPRESSION: 1. No evidence of acute process in the abdomen or pelvis. 2. Cirrhotic liver morphology with sequela of portal hypertension. Electronically signed by: Brad Castorena MD 11/08/2018 3:41 PM CDT
== END ==
LOC: CT 13:41
PROVIDERS: ATTEND Family Medicine
DX: B18.2 Chronic viral hepatitis C (principal); K74.69 Other cirrhosis of liver; K76.6 Portal hypertension; R10.9 Unspecified abdominal pain; M54.08 Panniculitis affecting regions of neck and back, sacral and sacrococcygeal region; N17.8 Other acute kidney failure; N30.00 Acute cystitis without hematuria

== ENCOUNTER → 2018-11-13 | Outpatient (CLI) | payer MEDICARE ==
--- NOTE | 2018-11-13 11:10 | RAD ---
TECHNIQUE: Following the intravenous administration of contrast routine IVP digital imaging with was acquired. FINDINGS: The preliminary provider service representative examination is unremarkable. Redemonstrated central mesentery calcification. There is normal renal size, contour, position and density. There is normal renal function. No renal, ureteral or bladder calculi are seen. There is no evidence of hydronephrosis. There is no evidence of a renal mass. There is normal ureteral position. There is no evidence of ureteral dilatation. There is normal bladder size, contour and wall thickness. There is no evidence of a bladder mass. Minimal post void residual is identified. IMPRESSION: 1. Normal intravenous pyelogram. Electronically signed by: Brad Castorena MD 11/13/2018 11:08 AM CDT
== END ==
LOC: RAD 08:30
PROVIDERS: ATTEND Family Medicine
DX: K74.69 Other cirrhosis of liver (principal); B18.2 Chronic viral hepatitis C; R10.9 Unspecified abdominal pain; N30.00 Acute cystitis without hematuria; N17.8 Other acute kidney failure; M54.08 Panniculitis affecting regions of neck and back, sacral and sacrococcygeal region

== ENCOUNTER → 2018-12-10 | Outpatient (CLI) | payer MEDICARE | LOC: GMAL 17:03 | PROVIDERS: ATTEND Family Medicine | DX: D50.8 Other iron deficiency anemias (principal) ==

== ENCOUNTER → 2019-01-09 | Outpatient (CLI) | payer MEDICARE | LOC: GMAL 11:10 | PROVIDERS: ATTEND Family Medicine | DX: D50.8 Other iron deficiency anemias (principal) ==

== ENCOUNTER 2019-02-08 08:58 | Outpatient (CLI) | payer MEDICARE ==
[2019-02-08] MEDS ORDERED: SODIUM CHL 0.9% IVPB ONE (09:00)
[2019-02-08] MEDS ORDERED: IRON DEXTRAN IVPB ONE (09:00)
[2019-02-08 09:46] VITALS: BP 145/78; TEMP 98.4; O2SAT 96
[2019-02-10] MEDS ORDERED: SODIUM CHLORIDE 0.9% (FLUSH) 10 ML SYG IV PRN (10:52)
== END 2019-02-08 10:45 | disposition home or self-care (01) ==
LOC: INFRM 08:58 → EDSTATUS 09:00 → INFRM 10:45
PROVIDERS: ATTEND Family Medicine
DX: D50.8 Other iron deficiency anemias (principal)
CPT/HCPCS: 96365; J1750; J7050

== ENCOUNTER → 2019-08-30 | Outpatient (CLI) | payer MEDICARE ==
--- NOTE | 2019-09-02 13:38 | MRI ---
EXAM DESCRIPTION: Lumbar Spine w/o Contrast : Magnetic Resonance Imaging. CLINICAL HISTORY: LOW BACK PAIN COMPARISON: MRI scan lumbar spine February 2013. TECHNIQUE: Multiplanar, multiple standard sequences, non contrast MRI, lumbar spine. FINDINGS: L5-S1: The disc is well visualized on axial T2 series 501, image 3. Disc space narrowing with disc desiccation. Moderate endplate reactive changes diffusely with superior and inferior Schmorl's nodes. Posterior broad-based bulge. Hypertrophic degeneration of the flavum ligaments and facet joints (canal elements). Canal is patent. Moderate severe right foraminal narrowing and borderline left foraminal stenosis. This has progressed since the prior study. Rudimentary L1-L2 disc. L4-L5: Disc desiccation and minimal disc space loss more posterior. 2 mm grade 1 anterolisthesis. With minimal disc bulging. Mild degenerative hypertrophy of the canal elements. AP canal diameter 12 mm. Bilateral disc bulging into the foramina which are moderately narrowed. Stable since the prior study. L3-L4: Disc desiccation minimal disc space loss posteriorly. Trace retrolisthesis. Degenerative hypertrophy of the canal elements more on the left. AP canal diameter 11 mm. Moderate narrowing of the right foramen and moderate to severe narrowing of the left foramen. No change from the prior study. L2-L3: Moderate to severe disc space loss with concavities in the superior inferior endplates and moderate endplate reactive changes diffusely. Anterior disc bulge with endplate spurs. Posterior disc osteophyte bulge broad-based with retrolisthesis 2 mm. Bilateral narrowing of the subarticular recesses. Bilateral mild hypertrophic degeneration of the canal elements. AP canal diameter 10 mm., Also progressive. L1-L2: Disc desiccation and minimal to moderate disc space loss. Posterior endplate Schmorl's nodes and moderate endplate reactive changes. These have progressed since the prior study. Minimal changes anteriorly. Posterior broad-based disc bulge. Bilateral mild hypertrophic degeneration of the canal elements. Canal is patent. Conus terminates just below the disc space. Bilateral mild intraforaminal disc bulge with bilateral mild to moderate narrowing. T12-L1: Disc desiccation with disc space maintained. Tiny posterior bulge. Canal elements unremarkable. Canal and foramina are patent. No scoliosis. Paravertebral soft tissues minimal paravertebral muscular atrophy.. Distal cord normal signal and caliber. Otherwise normal marrow signal in the remaining vertebral bodies and the posterior elements. Vertebral bodies are not compressed at any level. IMPRESSION: 1. Multiple levels of disc desiccation and disc space loss, endplate spondylosis, hypertrophic degeneration of the facets and ligaments. 2. Bilateral foraminal severe narrowing or stenosis at L5-S1 which has progressed since the prior study. 3. Diffuse spondylosis at the L1-L2 level and borderline mild central canal stenosis have progressed since the prior study. See above details for findings at other levels. Electronically signed by: Sathish Stevens MD 09/02/2019 1:36 PM CDT
== END ==
LOC: MRI 13:54
PROVIDERS: ATTEND Family Medicine
DX: M51.36 Other intervertebral disc degeneration, lumbar region (principal); M47.896 Other spondylosis, lumbar region; M46.96 Unspecified inflammatory spondylopathy, lumbar region; M48.061 Spinal stenosis, lumbar region without neurogenic claudication; M48.07 Spinal stenosis, lumbosacral region; M24.28 Disorder of ligament, vertebrae

== ENCOUNTER → 2019-10-21 | Outpatient (CLI) | payer MEDICARE ==
--- NOTE | 2019-10-22 07:38 | MRI ---
Study: MRI of the Right Knee. Indication: PAIN IN RT KNEE Technique: Multiplanar, multi sequence MRI of the right knee was obtained without intravenous contrast. Comparison: None. Findings: ACL, PCL, lateral collateral, intact. MCL is lax and bowed indicating sequela of a prior MCL sprain. No acute tear. Radial free edge tearing of the body medial meniscus with subtle undersurface fraying posterior horn. Body extruded by 2 mm. Grade 3 chondral thinning throughout the majority of the medial compartment with minimal grade 4 chondrosis and subchondral marrow change at the anteromedial margin of the medial tibial plateau. High-grade radial tearing and horizontal cleavage tearing of the body lateral meniscus which is extruded by 5 mm. Additional undersurface tearing of the posterior horn and anterior horn with attenuation posterior root attachment but without transection. Extensive grade 4 chondrosis, cortical remodeling, significant subchondral marrow change of the central to posterior weightbearing aspects of the lateral compartment. Low-grade tendinosis quadriceps tendon insertion. Patellar tendon intact. Patella normally located. Grade 4 chondrosis junction lateral patellar facet and apex. Moderate size knee effusion. Scattered subcutaneous edema about the knee. No acute fracture. Impression: Complex multidirectional tearing of the lateral meniscus and to a lesser extent medial meniscus as detailed above. Tricompartmental chondrosis, most pronounced at the central and posterior weightbearing aspects of the lateral compartment where there is extensive grade 4 chondral loss. Moderate size knee effusion. Additional findings as above. Electronically signed by: Raji Arthur MD 10/22/2019 7:37 AM CDT
== END ==
LOC: MRI 13:18
PROVIDERS: ATTEND Family Medicine
DX: S83.281A Other tear of lateral meniscus, current injury, right knee, initial encounter (principal); S83.241A Other tear of medial meniscus, current injury, right knee, initial encounter; M94.261 Chondromalacia, right knee; M25.461 Effusion, right knee

== ENCOUNTER → 2019-11-08 | Outpatient (CLI) | payer MEDICARE ==
--- NOTE | 2019-11-08 11:49 | RAD ---
EXAM DESCRIPTION: Knee,Left Complete CLINICAL HISTORY: PAIN IN LEFT KNEE COMPARISON: None. IMPRESSION: 4 standing views of the left knee show severe narrowing of the medial tibiofemoral compartment with flattening of the weightbearing articular surfaces and sclerotic changes with subchondral and subcortical cystic changes primarily in the tibia plateau. Findings are compatible with severe osteoarthritic changes. Mild lateral positioning of the tibia plateau relative to the distal femur is seen with mild degenerative changes between the lateral femoral condyle and lateral tibial spine. Mild narrowing of the lateral patellofemoral compartment and mild joint line osteophytes suggesting mild osteoarthritic changes. Soft tissues are unremarkable. No joint effusion. Electronically signed by: Aiden Holloway MD 11/08/2019 11:47 AM CDT
--- NOTE | 2019-11-08 11:49 | RAD ---
EXAM DESCRIPTION: Knee,Right Complete CLINICAL HISTORY: PAIN IN RIGHT KNEE COMPARISON: None. FINDINGS: 4 standing views of the right knee show mild narrowing of the medial and moderate narrowing of the lateral tibiofemoral evidence with mild joint line osteophytes of the lateral compartment. Articular surface irregularity of the weightbearing lateral femoral condyle is seen. Patellofemoral compartment is unremarkable. Increased density in the suprapatellar bursa is seen on lateral projection. IMPRESSION: Moderate osteoarthritic changes of the right lateral tibiofemoral compartment. Small suprapatellar joint effusion is seen. Electronically signed by: Aiden Holloway MD 11/08/2019 11:48 AM CDT
== END ==
LOC: RAD 08:11
PROVIDERS: ATTEND Orthopaedic Surgery
DX: M17.11 Unilateral primary osteoarthritis, right knee (principal); M17.12 Unilateral primary osteoarthritis, left knee; M25.862 Other specified joint disorders, left knee; M25.762 Osteophyte, left knee; M25.461 Effusion, right knee

== ENCOUNTER → 2019-11-14 | Outpatient (CLI) | payer MEDICARE | END | disposition home or self-care (01) | LOC: GMAL 14:34 | PROVIDERS: ATTEND Family Medicine | DX: Z01.818 Encounter for other preprocedural examination (principal); N39.0 Urinary tract infection, site not specified ==

== ENCOUNTER 2019-12-04 05:52 | Day surgery (SDC) | payer MEDICARE ==
[2019-12-04] MEDS ORDERED: LACTATED RINGERS 1,000 ML ONE (06:59)
[2019-12-04] MEDS ORDERED: ceFAZolin SODIUM 1 GM VIAL ONE (06:59)
[2019-12-04] MEDS ORDERED: SODIUM CHL 0.9% 100ML MINI-BAG 100 ML IVPB ONE (06:59)
[2019-12-04] MEDS ORDERED: MAGNESIUM SULFATE INJ 1 GM/2 ML VIAL ONE (07:00)
[2019-12-04] MEDS ORDERED: ePHEDrine SULF 50 MG/ML ONE (07:00)
[2019-12-04] MEDS ORDERED: BUPIVACAINE 0.5% 30 ML VIAL INJ ONE ×2 (07:00→08:56)
[2019-12-04] MEDS ORDERED: GLYCOPYRROLATE 0.2 MG/ML VIAL ONE (07:00)
[2019-12-04] MEDS ORDERED: PROPOFOL 200 MG/20 ML VIAL IV ONE (07:00)
[2019-12-04] MEDS ORDERED: DEXAMETHASONE INJ 10 MG/ML VIAL ONE (07:00)
[2019-12-04] MEDS ORDERED: LIDOCAINE 1% 10 ML VIAL INJ ONE (07:00)
[2019-12-04] MEDS ORDERED: SUCCINYLCHOLINE CHLORIDE 200 MG/10 ML VIAL ONE (09:01)
[2019-12-04] MEDS ORDERED: MIDAZOLAM INJ 2 MG/2 ML VIAL ONE (12:01)
[2019-12-04] MEDS ORDERED: fentaNYL CITRATE INJ 50 MCG/ML AMP ONE (12:01)
[2019-12-04] MEDS ORDERED: FAMOTIDINE 10 MG/ML ML IV ONE (12:08)
[2019-12-04] MEDS ORDERED: BUPIVACAINE 0.25% INJ 30 ML VIAL INJ ONE ×2 (12:30→12:56)
[2019-12-04] MEDS: ceFAZolin SODIUM 1 GM VIAL ONE ×4 (12:41→12:55)
[2019-12-04] MEDS: BUPIVACAINE LIPOSOME 13.3 MG/ML VIAL INJ ONE ×2 (12:46→12:56)
[2019-12-04] MEDS: VANCOMYCIN HCL INJ 1,000 MG VIAL IVPB ONE ×2 (12:46→12:55)
[2019-12-04 15:15] VITALS: BP 178/96; TEMP 98.1; O2SAT 98
--- NOTE | 2019-12-09 10:12 | OP ---
DATE OF PROCEDURE: 12/04/19 PREOPERATIVE DIAGNOSIS: 1. Right knee pain. POSTOPERATIVE DIAGNOSIS: 1. Right medial meniscal tear. 2. Right knee osteoarthritis. PROCEDURE: 1. Debridement. 2. Partial medial meniscectomy. SURGEON: Quirino Gloria MD. SLPS: Sathish Queen CST, SA-C. ANESTHESIA: General anesthesia. COMPLICATIONS: None. FINDINGS: 1. Advanced osteoarthritis of the medial meniscus. 2. Flap tear of the medial meniscus. 3. Advanced detached in the medial meniscus. 4. Normal ACL, normal PCL. 5. Degenerative changes in the lateral compartment. 6. Lateral meniscus fraying. 7. Normal lateral gutter. 8. Normal suprapatellar pouch. 9. Advanced detached in the patellofemoral joint. 10. Normal medial gutter. INDICATION: Lakhwinder has a history of knee pain associated with some mechanical issues. Because of her ongoing symptoms, she has requested operative intervention. After discussing the risks, benefits and alternatives to operative intervention, the patient has given informed consent for knee arthroscopy. PROCEDURE: The patient was brought to the Operating Room and placed in supine position. General anesthesia was induced and the patient's leg was sterilely prepped and draped. Following prepping and draping, standard anteromedial and anterolateral portals were established. Diagnostic arthroscopy was carried out with the above findings. Attention was then focused on the medial compartment where debridement was undertaken and a partial medial meniscectomy was performed. The lateral and patellofemoral compartments were then debrided. The knee was very thoroughly irrigated and drained. Following drainage, the wounds were closed with Nylon suture. Sterile dressings were placed. The patient was awoken from anesthesia and taken to Recovery. POSTOPERATIVE PLAN: The patient will be partial weightbearing beginning on postoperative day 1. She will followup with us in two days. [facility][id number] [facility]
== END 2019-12-04 15:10 | disposition home or self-care (01) ==
LOC: AMB 05:52
PROVIDERS: ATTEND Orthopaedic Surgery
DX: S83.241A Other tear of medial meniscus, current injury, right knee, initial encounter (principal); M17.11 Unilateral primary osteoarthritis, right knee; I10 Essential (primary) hypertension; E66.9 Obesity, unspecified; Z79.899 Other long term (current) drug therapy; Z87.891 Personal history of nicotine dependence; X58.XXXA Exposure to other specified factors, initial encounter
CPT/HCPCS: 01400; 29881; 80307; J0330; J0690; J1100; J2250; J3010; J3370; J3475; J3490; J7050; J7120

== ENCOUNTER 2020-01-01 05:13 | Inpatient (IN) | payer MEDICARE ==
[2020-01-01] MEDS ORDERED: PHENYLEPHRINE INJ 1ML 10 MG/ML VIAL ONE (07:00)
[2020-01-01] MEDS ORDERED: TRANEXAMIC ACID 1,000 MG/10 ML VIAL ONE (07:00)
[2020-01-01] MEDS ORDERED: diphenhydrAMINE HCL 50 MG/ML VIAL ONE (07:00)
[2020-01-01] MEDS ORDERED: DEXAMETHASONE INJ 10 MG/ML VIAL ONE (07:00)
[2020-01-01] MEDS ORDERED: EPINEPHrine HCL AMP 1 MG/ML AMP ONE (07:00)
[2020-01-01] MEDS ORDERED: PROPOFOL 200 MG/20 ML VIAL IV ONE (07:00)
[2020-01-01] MEDS ORDERED: LACTATED RINGERS 1,000 ML IVS ONE (09:34)
[2020-01-01] MEDS ORDERED: TRANEXAMIC ACID 1,000 MG/10 ML VIAL IV ONE (09:35)
[2020-01-01] MEDS ORDERED: MIDAZOLAM INJ 5 MG/5 ML VIAL ONE (09:36)
[2020-01-01] MEDS ORDERED: HYDROmorphone HCL INJ 2 MG/ML VIAL ONE (09:36)
--- NOTE | 2020-01-01 09:36 | RAD ---
EXAM DESCRIPTION: Pelvis CLINICAL HISTORY: 64 years Female, pre op COMPARISON: None. Findings: One view(s)/radiograph(s) Osteopenia. Left total hip arthroplasty. No hardware complication. Moderate right hip osteoarthritis. No acute fracture or dislocation. No focal soft tissue swelling. IMPRESSION: No acute osseous abnormality identified in the pelvis. Electronically signed by: Brad Castorena MD 01/01/2020 9:34 AM CDT
[2020-01-01] MEDS ORDERED: fentaNYL CITRATE INJ 50 MCG/ML 5 ML AMP ONE (09:37)
[2020-01-01] MEDS ORDERED: BUPIVACAINE 0.5% 30 ML VIAL INJ ONE (09:41)
[2020-01-01] MEDS ORDERED: VANCOMYCIN HCL INJ 1,000 MG VIAL IVPB ONE (09:47)
[2020-01-01] MEDS: ceFAZolin SODIUM 1 GM VIAL ONE ×3 (10:38→11:50)
[2020-01-01] MEDS: VANCOMYCIN HCL INJ 1,000 MG VIAL IVPB ONE ×3 (10:39→11:50)
[2020-01-01] MEDS: BUPIVACAINE 0.5% 30 ML VIAL INJ ONE ×2 (10:39→11:40)
[2020-01-01] MEDS: BUPIVACAINE LIPOSOME 13.3 MG/ML VIAL INJ ONE ×2 (10:39→11:40)
[2020-01-01] MEDS ORDERED: LACTATED RINGERS 1,000 ML ONE (11:21)
[2020-01-01] MEDS ORDERED: NALOXONE HCL INJ 0.4 MG/ML VIAL IV PRN (12:08)
[2020-01-01] MEDS ORDERED: BENZOCAINE-MENTH LOZ (CEPACOL) 1 EA LOZ MT PRN (12:08)
[2020-01-01] MEDS ORDERED: SODIUM CHLORIDE 0.9% (FLUSH) 10 ML SYG IV PRN (12:08)
[2020-01-01] MEDS ORDERED: MORPHINE SULFATE INJ 10 MG/ML VIAL IV PRN (12:08)
[2020-01-01] MEDS ORDERED: ZOLPIDEM TARTRATE 5 MG TAB PO PRN (12:08)
[2020-01-01] MEDS ORDERED: ACETAMINOPHEN 500 MG TAB PO PRN (12:08)
[2020-01-01] MEDS ORDERED: PROMETHAZINE HCL INJ 25 MG in SODIUM CHLORIDE 0.9% 50ML 50 ML IVPB PRN (12:08)
[2020-01-01] MEDS ORDERED: TEMAZEPAM 15 MG CAP PO PRN (12:08)
[2020-01-01] MEDS ORDERED: PROMETHAZINE HCL INJ 12.5 MG in SODIUM CHLORIDE 0.9% 50ML 50 ML IVPB PRN (12:08)
[2020-01-01] MEDS ORDERED: ALUMINUM & MAGNESIUM HYDROXIDE 30 ML UD PO PRN (12:08)
[2020-01-01] MEDS ORDERED: MAGNESIUM HYDROXIDE 30 ML UD PO PRN (12:08)
[2020-01-01] MEDS ORDERED: MORPHINE SULFATE INJ 10 MG/ML VIAL IM PRN (12:08)
[2020-01-01] MEDS ORDERED: traMADol HCL 50 MG TAB PO PRN (12:08)
[2020-01-01] MEDS ORDERED: TRANEXAMIC ACID INJ 1,000 MG in SODIUM CHLORIDE 0.9% 100ML 100 ML IVPB ONE (12:08)
[2020-01-01] MEDS ORDERED: ACETAMINOPHEN 325 MG TAB PO PRN (12:08)
[2020-01-01] MEDS ORDERED: ONDANSETRON INJ 4 MG/2 ML VIAL IV PRN (12:08)
[2020-01-01] MEDS ORDERED: BISACODYL SUPPOSITORY 10 MG PR PRN (12:08)
[2020-01-01] MEDS ORDERED: DEX 5% W/NACL 0.45% 1000ML 1,000 ML IVS PRN (12:08)
[2020-01-01] MEDS ORDERED: MORPHINE PCA 1 MG/ML 100 ML BAG IVPB SCH (12:30)
[2020-01-01] MEDS ORDERED: IV SET AND CAP CHANGE INJ INJ SCH (12:30)
[2020-01-01] MEDS ORDERED: CADD ADMIN SET 1 EA PKG INJ ONE (13:19)
[2020-01-01] MEDS ORDERED: MORPHINE PCA 1 MG/ML 100 ML BAG IVPB ONE (13:23)
--- NOTE | 2020-01-01 13:30 | OP ---
DATE OF PROCEDURE: 01/01/20 PREOPERATIVE DIAGNOSIS: 1. Osteoarthritis of the knee. POSTOPERATIVE DIAGNOSIS: 1. Osteoarthritis of the knee. PROCEDURE: 1. Total knee arthroplasty. SURGEON: Quirino Gloria MD. INDUSTRIAL SEWER: Sathish Queen CST, SA-C. ANESTHESIA: General anesthesia. COMPLICATIONS: None. FINDINGS: Severe osteoarthritis of the knee. INDICATION: Ms. Slater has a history of severe pain and has had multiple conservative interventions. Unfortunately, she has unable to get relief with conservative measures. Because of her ongoing pain and failure of conservative measures, she has requested operative intervention. After discussing the risks, benefits and alternatives to that, the patient has given informed consent for total knee arthroplasty. PROCEDURE: The patient was brought to the Operating Room and placed in supine position. General anesthesia was induced and the patient's leg was sterilely prepped and draped. Following prepping and draping, the distal femur was exposed and using an intramedullary guide, the distal femoral cut was made. The appropriate sized cutting block was measured, pinned into place, and the anterior, posterior, and chamfer cuts were made. The ACL was transected and the tibia was subluxed. Both the medial and lateral menisci were removed. An intramedullary guide was used to make the proximal tibial cut. The appropriate sized base plate was placed and a trial polyethylene was placed. The trial femur was placed, the knee was reduced, and the knee was taken through a range of motion. The knee was stable in anterior, posterior, varus and valgus stress. The patella tracked anatomically without evidence of subluxation or dislocation. After trialing, the trial components were removed and the bony surfaces were thoroughly irrigated with saline. Following irrigation, the surfaces were dried and the final components were cemented into place. The excess cement was removed and the remaining cement was allowed to cure. The knee was again taken through a range of motion to confirm stability. The wound was then irrigated with saline and closure was performed using PDS to approximate the arthrotomy followed by closure of the subcutaneous tissues with a combination of running and interrupted Monocryl sutures. Sterile dressing was placed. The patient was awoken from anesthesia and taken to Recovery. COMPONENTS: StelKast knee, size 3.5 femur, size 2 tibia, 10 mm insert. POSTOPERATIVE PLAN: The patient will be admitted for postoperative physical therapy with weight-bearing as tolerated on postoperative day 1. [id number] [facility]
--- NOTE | 2020-01-01 13:57 | CONS ---
SUPERVISING PHYSICIAN: Peter Herrera MD DATE OF CONSULTATION: 01/01/20 REASON FOR CONSULTATION: Medical management. HISTORY OF PRESENT ILLNESS: This is a 64-year-old female who had a longstanding history of left knee osteoarthritis which failed conservative measures. She was offered surgical intervention with a total knee arthroplasty and accepted. Therefore, today she underwent left total knee arthroplasty with no intraoperative complications. She was brought to the Medical/Surgical Unit in stable condition. At the time of examination, the patient is drowsy, but follows commands. No complaints of pain, no nausea. A little bit of itching. PAST MEDICAL HISTORY: 1. Irritable bowel syndrome. 2. Hypertension. 3. Cirrhosis, nonalcoholic. 4. Hepatitis B, hepatitis C and has undergone successful treatment in the past. 5. Left foot fracture. 6. Osteopenia. PAST SURGICAL HISTORY: 1. Appendectomy. 2. Cholecystectomy. 3. Hysterectomy. 4. Left foot surgery. 5. Right shoulder surgery. 6. Right knee arthroscopy. MEDICATIONS: Please see med rec list once verified in the computer. ALLERGIES: NO KNOWN DRUG ALLERGIES. FAMILY HISTORY: Father at age 85 from multiple different issues including hypertension, hyperlipidemia. Mother at age 62 of breast cancer. She has siblings with diabetes, congestive heart failure and asthma. SOCIAL HISTORY: She is . She does not have any children. She quit smoking in 1996. No alcohol. No illicit drugs. REVIEW OF SYSTEMS: Other than the acute itching and preoperative left knee pain, she has had no complaints at this time. PHYSICAL EXAMINATION: VITAL SIGNS: Blood pressure 124/91, heart rate 63, respiratory rate 16, temperature 98.4, oxygen saturation 97%. GENERAL: Ms. Slater is a 64-year-old female who is in no active distress currently. NEUROLOGIC: The patient is a little bit drowsy from anesthesia, but otherwise she has no focal deficits and answers questions appropriately. LUNGS: Clear to auscultation bilaterally. CARDIOVASCULAR: Regular rate and rhythm. Normal S1, S2. ABDOMEN: Soft. Positive bowel sounds. EXTREMITIES: Lower extremities with no edema. Pulses 2+. Capillary refill is less than 2 seconds. The left lower extremity is wrapped in an Ryan and has an ice pack in place. IMPRESSION: 1. Left knee osteoarthritis status post left total knee arthroplasty, postoperative day 0. 2. Hypertension. 3. History of irritable bowel syndrome. PLAN: The patient will be admitted to the Medical/Surgical Unit for postoperative pain control as well as physical therapy. We will resume home medications once they are verified in the computer. Additionally, we will ensure the patient has anticoagulation for typical postoperative knee patients. We will continue to monitor her physical therapy progression to better plan for discharge. #[id number] [facility]
[2020-01-01] MEDS ORDERED: SODIUM CHLORIDE 0.9% 50ML 50 ML ONE (15:54)
[2020-01-01] MEDS: ceFAZolin SODIUM 2 GM in SODIUM CHL 0.9% 50ML MIN-BAG+ 50 ML IVPB SCH (16:22)
[2020-01-01] MEDS ORDERED: SODIUM CHLORIDE 0.9% 250ML 250 ML ONE (17:38)
[2020-01-01] MEDS: CELECOXIB 100 MG CAP PO SCH (17:43)
[2020-01-01] MEDS: VANCOMYCIN HCL INJ 1,000 MG in SODIUM CHLORIDE 0.9% 250ML 250 ML IVPB SCH (17:43)
[2020-01-01] MEDS ORDERED: DOCUSATE CALCIUM 240 MG CAP ONE (19:10)
[2020-01-01] MEDS: DOCUSATE CALCIUM 240 MG CAP PO SCH (20:58)
[2020-01-01] MEDS: ENOXAPARIN SODIUM 30 MG/0.3 ML SYG SUBCU SCH (22:47)
[2020-01-02] MEDS: ceFAZolin SODIUM 2 GM in SODIUM CHL 0.9% 50ML MIN-BAG+ 50 ML IVPB SCH ×2 (00:13→08:49)
[2020-01-02] MEDS: VANCOMYCIN HCL INJ 1,000 MG in SODIUM CHLORIDE 0.9% 250ML 250 ML IVPB SCH (05:36)
[2020-01-02] MEDS: MAGNESIUM OXIDE 400 MG TAB PO SCH (08:41)
[2020-01-02] MEDS: CYCLOBENZAPRINE HCL 10 MG TAB PO PRN (08:41)
[2020-01-02] MEDS: CELECOXIB 100 MG CAP PO SCH ×2 (08:48→18:02)
[2020-01-02] MEDS: HYDROcodone 5MG/APAP 325MG 1 EA TAB PO PRN ×3 (08:48→18:02)
--- NOTE | 2020-01-02 11:37 | RAD ---
EXAM DESCRIPTION: Knee,Left 1 or 2 Views CLINICAL HISTORY: 64 years, Female, TKA COMPARISON: 11/08/2019 TECHNIQUE: Frontal and lateral views of the left knee FINDINGS/IMPRESSION: Postoperative changes of left total knee arthroplasty in anatomic alignment. No perihardware fracture or hardware complication. No aggressive osseous lesion. Expected postsurgical gas and soft tissue changes. Electronically signed by: Colin Hankins DO 01/02/2020 11:35 AM CDT
[2020-01-02] MEDS: ENOXAPARIN SODIUM 30 MG/0.3 ML SYG SUBCU SCH ×2 (13:05→23:06)
[2020-01-02] MEDS ORDERED: CARVEDILOL 3.125 MG TAB ONE (20:11)
[2020-01-02] MEDS: NON-FORMULARY MEDICATION 1 EA MIS (Carvedilol [Carvedilol] 6.25 MG) PO SCH (21:22)
[2020-01-02] MEDS: DOCUSATE CALCIUM 240 MG CAP PO SCH (21:22)
[2020-01-03] MEDS: CYCLOBENZAPRINE HCL 10 MG TAB PO PRN ×2 (05:38→13:45)
[2020-01-03] MEDS: HYDROcodone 5MG/APAP 325MG 1 EA TAB PO PRN ×3 (05:38→13:44)
[2020-01-03] MEDS ORDERED: DICYCLOMINE HCL 20 MG TAB ONE (07:05)
[2020-01-03] MEDS ORDERED: CITALOPRAM HBR 20 MG TAB ONE (07:05)
[2020-01-03] MEDS ORDERED: CARVEDILOL 3.125 MG TAB ONE (07:05)
[2020-01-03] MEDS: CELECOXIB 100 MG CAP PO SCH (08:23)
[2020-01-03] MEDS: NON-FORMULARY MEDICATION 1 EA MIS (Carvedilol [Carvedilol] 6.25 MG) PO SCH (08:25)
--- NOTE | 2020-01-03 08:32 | PN ---
SUPERVISING PHYSICIAN: Peter Herrera MD DATE: 01/02/20 SUBJECTIVE: The patient is doing well. She is doing physical therapy. Her pain has been well controlled. She did visit with [facility]. I believe at this point the plan is once she is able to discharge to continue her rehab through [facility] in [place]. She has had no fevers, no complaints other than just some soreness in the knee. OBJECTIVE: VITAL SIGNS: Temperature 98, pulse 76, blood pressure 128/81, respirations 18, saturation 96% on room air. GENERAL: The patient is resting comfortably, does not appear to be in any acute distress. CHEST: Lungs are clear to auscultation. HEART: Regular rate and rhythm. ABDOMEN: Soft, nontender. Positive bowel sounds. EXTREMITIES: Left knee still has a bulky dressing in place. Distal pulses are strong. Capillary refill brisk. NEUROLOGIC: Alert and oriented times three. LABORATORY: Postoperative hemoglobin 12.3, hematocrit 36.4. ASSESSMENT: 1. Left knee osteoarthritis status post left total knee arthroplasty, postoperative day 1. 2. Hypertension. 3. History of irritable bowel syndrome. PLAN: The patient is doing well with her physical therapy and will continue with physical therapy and management per Physical Therapy and Dr. Gloria. She has had a a visit with [facility] and I believe they are working to see if she will qualify. If she does, I anticipate she will discharge within the next 24 to 48 hours. She remains on anticoagulation per protocol. Until the patient can transition to outpatient management, we will continue to monitor and treat as needed. #[id number] [facility]
[2020-01-03] MEDS ORDERED: MAGNESIUM OXIDE 400 MG TAB ONE (08:39)
[2020-01-03] MEDS: MAGNESIUM OXIDE 400 MG TAB PO SCH (08:54)
[2020-01-03] MEDS ORDERED: SPIRONOLACTONE 25 MG TAB PO SCH ×2 (09:00→09:30)
[2020-01-03] MEDS ORDERED: PROPRANOLOL HCL 20 MG TAB PO SCH (09:00)
[2020-01-03] MEDS ORDERED: NON-FORMULARY MEDICATION 1 EA MIS (Citalopram Hydrobromide [Citalopram] 40 MG) PO SCH (09:00)
[2020-01-03] MEDS ORDERED: DICYCLOMINE HCL 10 MG PO SCH (09:00)
[2020-01-03] MEDS ORDERED: FUROSEMIDE 40 MG TAB PO SCH (09:00)
[2020-01-03] MEDS ORDERED: SODIUM CHLORIDE 0.9% (FLUSH) 10 ML SYG IV SCH (09:00)
[2020-01-03] MEDS ORDERED: NON-FORMULARY MEDICATION 1 EA MIS (Linaclotide [Linzess] 72 MCG) PO SCH (09:00)
[2020-01-03] MEDS: ENOXAPARIN SODIUM 30 MG/0.3 ML SYG SUBCU SCH (10:00)
--- NOTE | 2020-01-03 13:08 | PN ---
DATE: 01/02/20 SUBJECTIVE: Ms. Slater is doing well. Her pain is well controlled. OBJECTIVE: Afebrile. Vital signs stable. Dressing is clean, dry and intact. ASSESSMENT: Status post total knee arthroplasty. PLAN: The plan at this point is to begin weightbearing as tolerated today. #[id number] [facility]
--- NOTE | 2020-01-03 13:09 | PN ---
DATE: 01/03/20 SUBJECTIVE: Ms. Slater is doing well. She has been full weightbearing. OBJECTIVE: Afebrile. Vital signs stable. Wound is clean. There are no signs or symptoms of infection. ASSESSMENT: Status post total knee arthroplasty. PLAN: She will transfer to [facility] today. #[id number] [facility]
[2020-01-03 13:37] VITALS: BP 118/68; TEMP 98.5; O2SAT 95
--- NOTE | 2020-01-03 15:52 | PN ---
SUPERVISING PHYSICIAN: Peter Herrera MD DATE: 01/03/20 SUBJECTIVE: The patient is doing well today. She has been doing physical therapy. Her pain has been pretty well controlled. She has had no nausea or vomiting or further complaints. OBJECTIVE: VITAL SIGNS: Temperature 98, pulse 65, blood pressure 118/68, respirations 16, saturation 95% on room air. GENERAL: The patient is resting comfortably. She just finished physical therapy. She is alert. CHEST: Lungs are clear to auscultation. HEART: Regular rate and rhythm. ABDOMEN: Soft, nontender. Positive bowel sounds. EXTREMITIES: Left knee has an island dressing in place that is clean and dry. Distal pulses are 2+. Capillary refill brisk. NEUROLOGIC: Alert and oriented times three. LABORATORY: No additional laboratory studies. ASSESSMENT: 1. Left knee osteoarthritis status post left total knee arthroplasty, postoperative day 2. 2. Hypertension. 3. History of irritable bowel syndrome. PLAN: We will continue current plan of care deferring further orthopedic management to Dr. Gloria and Physical Therapy. We will continue with plan at this point to discharge hopefully Monday [facility]. Until we can discharge, we will continue to monitor and treat as needed. #[id number] [facility]
[2020-01-03] MEDS ORDERED: CARVEDILOL 3.125 MG TAB PO SCH (21:00)
[2020-01-04] MEDS ORDERED: CITALOPRAM HBR 20 MG TAB PO SCH (09:00)
[2020-01-04] MEDS ORDERED: DICYCLOMINE HCL 20 MG TAB PO SCH (09:00)
--- NOTE | 2020-01-04 12:53 | DS ---
SUPERVISING PHYSICIAN: Peter Herrera MD ADMISSION DIAGNOSES: 1. Left knee osteoarthritis status post left total knee arthroplasty, postoperative day 0. 2. Hypertension. 3. History of irritable bowel syndrome. DISCHARGE DIAGNOSES: 1. Left knee osteoarthritis status post left total knee arthroplasty. 2. Hypertension. 3. History of irritable bowel syndrome. REASON FOR HOSPITALIZATION: This is a 64-year-old female who had a longstanding history of left knee osteoarthritis which failed conservative measures. She was offered surgical intervention with a total knee arthroplasty and accepted. Therefore, today she underwent left total knee arthroplasty with no intraoperative complications. She was brought to the Medical/Surgical Unit in stable condition. At the time of examination, the patient is drowsy, but follows commands. No complaints of pain, no nausea. A little bit of itching. LABORATORY STUDIES: Postoperative hemoglobin 12.3, hematocrit 36.4. Urine culture showed no growth. MRSA culture showed no growth. RADIOLOGY: Please see postoperative and preoperative radiology reports. PROCEDURES: Left total knee arthroplasty. Please see Dr. Gloria's operative report. HOSPITAL COURSE: Ms. Slater was admitted on 12/31 for a elective left total knee arthroplasty. She did well postoperative. She was progressing well with physical therapy but continues to require ongoing aggressive management and requested admission to [facility]. She was accepted as a patient on 01/03/20 and discharged on same day. PLAN: Ms. Slater was discharged in transfer to [facility]. She is to followup with Dr. Gloria as scheduled. She is to resume her previous medications as prior to hospitalization. The patient was transferred via ground transfer and physical therapy as per physical therapy. Wound management as per Dr. Gloria's postoperative instructions. DISPOSITION: The patient was discharged and transferred to [facility]. CONDITION ON DISCHARGE: Stable and improved. [facility][id number] [facility]
[2020-01-04] MEDS ORDERED: BISACODYL SUPPOSITORY 10 MG PR ONE (21:00)
[2020-01-04] MEDS ORDERED: MAGNESIUM HYDROXIDE 30 ML UD PO ONE (21:00)
[2020-01-05] MEDS ORDERED: SPIRONOLACTONE 25 MG TAB PO SCH (09:00)
== END 2020-01-03 15:12 | DRG 470 ==
LOC: AMB 05:13 → MS 13:00
PROVIDERS: ADMIT Orthopaedic Surgery; ATTEND Orthopaedic Surgery
PROC: 0SRD0J9 Replacement of Left Knee Joint with Synthetic Substitute, Cemented, Open Approach (ICD-10-PCS; principal; 2020-01-01 09:58)
DX: M17.12 Unilateral primary osteoarthritis, left knee (principal); B19.10 Unspecified viral hepatitis B without hepatic coma; G89.18 Other acute postprocedural pain; K58.9 Irritable bowel syndrome, unspecified; I10 Essential (primary) hypertension; K74.60 Unspecified cirrhosis of liver; B19.20 Unspecified viral hepatitis C without hepatic coma; M85.80 Other specified disorders of bone density and structure, unspecified site; Z87.891 Personal history of nicotine dependence

== ENCOUNTER → 2020-04-24 | Outpatient (CLI) | payer MEDICARE | LOC: GMAL 11:30 | PROVIDERS: ATTEND Family Medicine | DX: D51.3 Other dietary vitamin B12 deficiency anemia (principal); E55.9 Vitamin D deficiency, unspecified; N39.0 Urinary tract infection, site not specified; Z79.891 Long term (current) use of opiate analgesic; D53.9 Nutritional anemia, unspecified; K76.9 Liver disease, unspecified ==